=== PATIENT | male | born 1945 | race Caucasian/White ===

== ENCOUNTER 2024-05-13 23:14 | Inpatient (IN) | payer MEDICARE, OTHER, SELFPAY ==
[2024-05-13] VITALS (7 sets, daily range): BP systolic 106–121; BP diastolic 31–75; BMI 23.9
--- NOTE | 2024-05-13 18:49 | ED.GENMED ---
History of Present Illness
<Rafi lEy MD - Last Filed: 05/13/24 18:52>
General
Chief Complaint: Breathing Problem
Time Seen by Provider: 05/13/24 18:40
History of Present Illness
History of Present Illness:
Patient presents to the emergency department in respiratory distress. His helps provide history. Notes that he is otherwise very healthy and usually walks the golf course multiple times a week. Over the past 2 weeks he has become
increasingly short of breath with productive cough, myalgias, fatigue. Notes that symptoms started 2 weeks ago. 1 week ago he saw his doctor and was started on Ceftin and albuterol. He has continued to decline and today began feeling very short
of breath. Denies chest pain. Denies leg swelling. Denies vomiting or diarrhea. Has a history of tobacco use but states he quit 45 years ago denies any prior lung disease
Phy Exam
<Rafi Ely MD - Last Filed: 05/13/24 18:52>
Physical Exam
Physical Exam:
GENERAL APPEARANCE: Patient pale appearing, in moderate respiratory distress,
EYES lids/conjunctiva normal
EARS/NOSE/THROAT Mucous membranes moist, uvula midline without oral pharyngeal erythema, exudate or swelling
HEAD/NECK normocephalic atraumatic, neck is supple.
RESPIRATORY speaking in short sentences, diffuse wheezing and rhonchi
CARDIAC tachycardic
ABDOMINAL Soft, ND/NT.
MUSCLES/EXTREMITIES No abnormal range of motion, no swelling.
SKIN Warm, dry. No rashes
NEUROLOGICAL Speech is clear and appropriate. Normal level of consciousness. 5/5 strength in all extremities.
Course
<Rafi Ely MD - Last Filed: 05/13/24 18:52>
Orders/Labs/Results
Orders:
Orders
05/13/24 18:44
Electrocardiogram (*1) Urgent
Reason for Study: Shortness of Breath
05/13/24 18:45
EKG- Treatment ONCE
05/13/24 18:46
Albuterol Nebs [Ventolin Nebules] 2.5 mg INH R NOW STA
Ipratropium/Albuterol Sulfate [Duoneb] 3 ml INH R NOW STA
MethylPREDNISolone PF [Solu-Medrol Pf] 125 mg IV NOW STA
O2 Therapy [RESP] Stat
Nasal Cannula Liter Flow: 5 LPM
Titrate/Wean O2 to maintain O2 sat greater than (%): 92
Pulse Ox/cont/shift [RESP] Stat
Quantity: 1
05/13/24 18:48
CT Chest Pe Study Urgent
Comment:
Reason For Exam: hypoxia
Peak Flow Rate [RESP] Urgent
Quantity: 1
Pre-Bronchodilator: Yes
Post Bronchodilator: Yes
Special Instructions: Pre and Post Peak Flow before and after Bronchodilator
05/13/24 19:16
COVID-19 Antigen Urgent
Source: Nasal Swab
Complete Blood Count/With Diff Urgent
Comprehensive Metabolic Panel Urgent
D-Dimer Urgent
Lactic Acid Q4H
Comment: CANCEL 2nd LACTIC ACID IF 1st LACTIC ACID IS LESS THAN 2
NT-proBNP Urgent
Troponin I Urgent
Influenza A+B Rapid Molecular Urgent
JAJA Source: Nasal Swab
Specimen Description:
05/13/24 19:49
Blood Culture Urgent
JAJA Source: Blood/Venous
Specimen Description:
05/13/24 19:55
O2 Therapy [RESP] Urgent
Titrate/Wean O2 to maintain O2 sat greater than (%): 91
05/13/24 20:11
Azithromycin 500 mg/250 ml [Zithromax Infusion] 500 mg in 250 ml IV NOW
CefTRIAXone [Rocephin] 1,000 mg IV NOW STA
05/13/24 20:31
CR Chest Portable - 1 View Urgent
Comment:
Reason For Exam: sob
Reason Study Needs to be Portable: Other
05/13/24 22:42
Admit/Transfer Patient As Directed
Co-Sign Provider:
Level of Care: Inpatient admission
Assign to:: IMU- Intermediate Care
Physician / Group: dylon
Diagnosis: pneumonia
Reason for Hospitalization: pneumonia
Expected length of stay greater than two midnights?: Yes
ELOS- Estimated Length of Stay in days: 2
I certify the patient meets the requirements for IP care: Yes
Code Status As Directed
Resuscitation Status: Full Code
05/13/24 22:54
MRSA Screen Routine
JAJA Source: Nose
Specimen Description:
05/13/24 23:00
Flush (0.9% Sodium Chloride) [Flush (Nss)] See Dose Instructions IV PER PROTOCOL
05/13/24 23:17
Legionella Urinary Antigen Urgent
JAJA Source: Urine
Specimen Description:
Strep pneumoniae Antigen Urgent
JAJA Source: Urine
Specimen Description:
05/14/24 00:09
0.9% Sodium Chloride 1000 ml [Nss] 1,000 ml IV 100 mls/hr
Albuterol [ProAIR HFA INHALER] 2 puff INH R QIDPRN PRN
Piperacillin/Tazo 3.375 Gram [Zosyn] 3.375 gram in 50 ml IV Q6H
05/14/24 00:09
Activity As Directed
Activity Level: As Tolerated
Vital Signs As Directed
Frequency: Per unit guidelines
DX Deep Vein Thrombosis Video Routine
05/14/24 03:37
Complete Blood Count/With Diff IN AM
Comprehensive Metabolic Panel IN AM
05/14/24 08:00
Cholecalciferol (Vitamin D3) [VITAMIN D3 (cholecalciferol)] 50 mcg PO DAILY
Heparin 5,000 units SC Q12
05/14/24 Dinner
NPO
Allow oral meds: Yes
Allow clear liquids: Sips of Clears
05/14/24 20:00
Azithromycin 500 mg/250 ml [Zithromax Infusion] 500 mg in 250 ml IV Q24H
Abnormal Lab Results
05/13/24
19:16
WBC 30.1 H 10^3/uL
(4.8-10.8)
Abs Immat Gran (auto) 0.6 H 10^3/uL
(0-0.05)
Absolute Neuts (auto) 27.3 H 10^3/uL
(1.4-6.5)
Absolute Lymphs (auto) 0.4 L 10^3/uL
(1.2-3.4)
Absolute Monos (auto) 1.7 H 10^3/uL
(0.1-0.6)
Immature Gran % 2.0 H %
(0-0.5)
Neutrophils % 90.7 H %
(42.2-75.2)
Lymphocytes % 1.3 L %
(20.5-51.1)
D-Dimer 1.30 H ug/mlFEU
(0.00-0.50)
BUN 33 H mg/dl
(9-20)
Glucose 121 H mg/dl
(70-99)
AST 60 H U/L
(17-59)
ALT 60 H U/L
(0-50)
Total Protein 6.0 L g/dl
(6.3-8.2)
05/13/24 19:16
05/13/24 19:16
Vital Signs
Initial and Last Documented VS:
Initial Vital Signs
Temp Pulse Resp BP Pulse Ox
37.3 C 122 22 115/75 86
05/13/24 18:32 05/13/24 18:32 05/13/24 18:32 05/13/24 18:32 05/13/24 18:32
Last Documented Vital Signs
Temp Pulse Resp BP Pulse Ox
36.4 C 48 16 100/59 95
05/14/24 03:00 05/14/24 03:45 05/14/24 03:45 05/14/24 02:00 05/14/24 03:45
<Xavier Wei MD - Last Filed: 05/14/24 05:20>
Orders/Labs/Results
Orders:
Orders
05/13/24 18:44
Electrocardiogram (*1) Urgent
Reason for Study: Shortness of Breath
05/13/24 18:45
EKG- Treatment ONCE
05/13/24 18:46
Albuterol Nebs [Ventolin Nebules] 2.5 mg INH R NOW STA
Ipratropium/Albuterol Sulfate [Duoneb] 3 ml INH R NOW STA
MethylPREDNISolone PF [Solu-Medrol Pf] 125 mg IV NOW STA
O2 Therapy [RESP] Stat
Nasal Cannula Liter Flow: 5 LPM
Titrate/Wean O2 to maintain O2 sat greater than (%): 92
Pulse Ox/cont/shift [RESP] Stat
Quantity: 1
05/13/24 18:48
CT Chest Pe Study Urgent
Comment:
Reason For Exam: hypoxia
Peak Flow Rate [RESP] Urgent
Quantity: 1
Pre-Bronchodilator: Yes
Post Bronchodilator: Yes
Special Instructions: Pre and Post Peak Flow before and after Bronchodilator
05/13/24 19:16
COVID-19 Antigen Urgent
Source: Nasal Swab
Complete Blood Count/With Diff Urgent
Comprehensive Metabolic Panel Urgent
D-Dimer Urgent
Lactic Acid Q4H
Comment: CANCEL 2nd LACTIC ACID IF 1st LACTIC ACID IS LESS THAN 2
NT-proBNP Urgent
Troponin I Urgent
Influenza A+B Rapid Molecular Urgent
JAJA Source: Nasal Swab
Specimen Description:
05/13/24 19:49
Blood Culture Urgent
JAJA Source: Blood/Venous
Specimen Description:
05/13/24 19:55
O2 Therapy [RESP] Urgent
Titrate/Wean O2 to maintain O2 sat greater than (%): 91
05/13/24 20:11
Azithromycin 500 mg/250 ml [Zithromax Infusion] 500 mg in 250 ml IV NOW
CefTRIAXone [Rocephin] 1,000 mg IV NOW STA
05/13/24 20:31
CR Chest Portable - 1 View Urgent
Comment:
Reason For Exam: sob
Reason Study Needs to be Portable: Other
05/13/24 22:42
Admit/Transfer Patient As Directed
Co-Sign Provider:
Level of Care: Inpatient admission
Assign to:: IMU- Intermediate Care
Physician / Group: dylon
Diagnosis: pneumonia
Reason for Hospitalization: pneumonia
Expected length of stay greater than two midnights?: Yes
ELOS- Estimated Length of Stay in days: 2
I certify the patient meets the requirements for IP care: Yes
Code Status As Directed
Resuscitation Status: Full Code
05/13/24 22:54
MRSA Screen Routine
JAJA Source: Nose
Specimen Description:
05/13/24 23:00
Flush (0.9% Sodium Chloride) [Flush (Nss)] See Dose Instructions IV PER PROTOCOL
05/13/24 23:17
Legionella Urinary Antigen Urgent
JAJA Source: Urine
Specimen Description:
Strep pneumoniae Antigen Urgent
JAJA Source: Urine
Specimen Description:
05/14/24 00:09
0.9% Sodium Chloride 1000 ml [Nss] 1,000 ml IV 100 mls/hr
Albuterol [ProAIR HFA INHALER] 2 puff INH R QIDPRN PRN
Piperacillin/Tazo 3.375 Gram [Zosyn] 3.375 gram in 50 ml IV Q6H
05/14/24 00:09
Activity As Directed
Activity Level: As Tolerated
Vital Signs As Directed
Frequency: Per unit guidelines
DX Deep Vein Thrombosis Video Routine
05/14/24 03:37
Complete Blood Count/With Diff IN AM
Comprehensive Metabolic Panel IN AM
05/14/24 08:00
Cholecalciferol (Vitamin D3) [VITAMIN D3 (cholecalciferol)] 50 mcg PO DAILY
Heparin 5,000 units SC Q12
05/14/24 Dinner
NPO
Allow oral meds: Yes
Allow clear liquids: Sips of Clears
05/14/24 20:00
Azithromycin 500 mg/250 ml [Zithromax Infusion] 500 mg in 250 ml IV Q24H
Abnormal Lab Results
05/13/24
19:16
WBC 30.1 H 10^3/uL
(4.8-10.8)
Abs Immat Gran (auto) 0.6 H 10^3/uL
(0-0.05)
Absolute Neuts (auto) 27.3 H 10^3/uL
(1.4-6.5)
Absolute Lymphs (auto) 0.4 L 10^3/uL
(1.2-3.4)
Absolute Monos (auto) 1.7 H 10^3/uL
(0.1-0.6)
Immature Gran % 2.0 H %
(0-0.5)
Neutrophils % 90.7 H %
(42.2-75.2)
Lymphocytes % 1.3 L %
(20.5-51.1)
D-Dimer 1.30 H ug/mlFEU
(0.00-0.50)
BUN 33 H mg/dl
(9-20)
Glucose 121 H mg/dl
(70-99)
AST 60 H U/L
(17-59)
ALT 60 H U/L
(0-50)
Total Protein 6.0 L g/dl
(6.3-8.2)
05/13/24 19:16
05/13/24 19:16
Vital Signs
Initial and Last Documented VS:
Initial Vital Signs
Temp Pulse Resp BP Pulse Ox
37.3 C 122 22 115/75 86
05/13/24 18:32 05/13/24 18:32 05/13/24 18:32 05/13/24 18:32 05/13/24 18:32
Last Documented Vital Signs
Temp Pulse Resp BP Pulse Ox
36.4 C 48 16 100/59 95
05/14/24 03:00 05/14/24 03:45 05/14/24 03:45 05/14/24 02:00 05/14/24 03:45
<Xavier Wei MD - Last Filed: 05/14/24 05:20>
Update Note
Update Note:
UPDATE (Xavier Wei MD)
I saw and examined the patient after signout and reviewed all labs and imaging.
Focused HPI: This is a 78-year-old male with a past medical history as documented who presented to the emergency room with worsening shortness of breath. Patient has had symptoms for about 2 weeks�primary symptom being cough, shortness of breath,
body aches and fatigue. He saw his primary doctor last week and was prescribed Ceftin for possible pneumonia versus bronchitis. He has been taking this but symptoms worsening despite these measures and so he ultimately came to the emergency room
for assessment.
Physical exam: Awake and alert with good mental status. Tachycardic and tachypneic, hypoxic requiring high flow nasal cannula to maintain saturations. Work of breathing is acceptable.
Medical Decision Makin-year-old male presents with 2-week history of worsening dyspnea, cough, chills despite treatment with outpatient antibiotics. Vitals and exam as above. Clinical picture seems most consistent with acute respiratory
failure secondary to pneumonia. He had lab work sent off including a CBC which showed a leukocytosis to 31. Predominant neutrophils on differential. His CMP showed mild hyperglycemia but otherwise unremarkable. He had an undetectable troponin
and only a slightly elevated proBNP�his clinical picture does not seem consistent with CHF. He had a COVID and flu swab which were both negative. He had a D-dimer that was positive. He is pending CTA to evaluate for pneumonia as well as to rule
out PE. Plan for admission pending CT. He has been covered with antibiotics for community-acquired pneumonia in the ER.
CT chest shows no PE but severe bilateral pneumonia. Updated patient�on reassessment oxygenation has been acceptable on high flow, vital signs have greatly improved. Will plan for admission at this point�case discussed with hospitalist for
admission.
ED Attending Note
<Rafi Ely MD - Last Filed: 05/13/24 18:52>
-
Portions of this chart may have been created with voice recognition software.� Occasional wrong word or��sound alike� substitutions may have occurred due to the inherent limitations of voice recognition software.
Discharge Plan
Departure
Patient Disposition: Admit
Date of Disposition: 05/13/24
Time of Disposition: 22:04
Admit to doctor: John
Presentation/result/management discussed w/ accepting MD/DO: Hospitalist
Discharge Problem:
Pneumonia, Acute hypoxemic respiratory failure
Interventions
Interventions:
*Risk Screen - Suicide Last Done: 05/13/24 18:32
*General Assessment Last Done: 05/13/24 18:32
*Neglect/Abuse Screening Last Done: 05/13/24 18:32
ED- Fall Risk Assessment Last Done: 05/14/24 00:11
*ED COVID-19 Vaccine History Last Done: 05/14/24 00:00
*Nursing Disposition Last Done: 05/14/24 00:11
ED- Cardiac Assessment Last Done: 05/13/24 19:20
ED- Pulmonary Assessment Last Done: 05/13/24 19:20
Discharge Date and Time
Discharge Date/Time: 05/14/24 00:12
[2024-05-13] MEDS: DUONEB 3 ML INH (19:01)
[2024-05-13] MEDS: VENTOLIN NEBULES 2.5 MG INH (19:01)
[2024-05-13] MEDS: SOLU-MEDROL PF 125 MG IV (19:23)
[2024-05-13 19:27] LABS: % Basophils 0.4 % (0-2); % Lymphocytes 1.3 % (20.5-51.1); % Monocytes 5.6 % (1.7-9.3); % Neutrophils 90.7 % (42.2-75.2); Absolute Basophils 0.1 10^3/uL (0-0.2); Absolute Immature Granulocytes 0.6 10^3/uL (0-0.05); Absolute Lymphocytes 0.4 10^3/uL (1.2-3.4); Absolute Monocytes 1.7 10^3/uL (0.1-0.6); Absolute Neutrophils 27.3 10^3/uL (1.4-6.5); Hematocrit 47.4 % (39.0-52.0); Hemoglobin 16.3 g/dL (13.0-18.0); Mean Corp Hgb Conc. 34.4 g/dL (33.0-37.0); Mean Corpuscular Hgb 29.1 pg (27.0-31.0); Mean Corpuscular Volume 84.5 fL (80.0-94.0); Mean Platelet Volume 10.2 fL (7.4-10.4); Nucleated Red Blood Cells % 0 % (-); Platelet Count 249 10^3/uL (130-400); Red Blood Cell Count 5.61 10^6/uL (4.70-6.10); Red Cell Dist. Width 13.8 % (11.5-14.5); White Blood Cell Count 30.1 10^3/uL (4.8-10.8)
[2024-05-13 19:38] LABS: Lactic Acid 1.3 mmol/L (0.7-2.0)
[2024-05-13 19:41] LABS: ALT (SGPT) 60 U/L (0-50); AST (SGOT) 60 U/L (17-59); Albumin 3.5 g/dl (3.5-5.0); Alkaline Phosphatase 112 U/L (38-126); Blood Urea Nitrogen 33 mg/dl (9-20); Calcium 9.2 mg/dl (8.4-10.2); Carbon Dioxide 26 mmol/L (22-30); Chloride 105 mmol/L (98-107); Glucose 121 mg/dl (70-99); Potassium 4.4 mmol/L (3.5-5.1); Sodium 139 mmol/L (135-145); Total Bilirubin 0.9 mg/dl (0.2-1.3); eGFR > 60.00
[2024-05-13 19:51] LABS: NT-proBNP 741 pg/ml; Troponin I < 0.012 ng/ml
[2024-05-13 20:08] LABS: COVID-19 Antigen Negative (Negative)
[2024-05-13] MEDS: ROCEPHIN 1000 MG IV (20:26)
[2024-05-13] MEDS: ZITHROMAX INFUSION 250 IV (20:26)
--- NOTE | 2024-05-13 22:46 | HPS.HSE ---
Family Physician
-
Family Physician: Urszula Roy
Chief Complaint
-
cough, shortness of breath
History of Present Illness
78-year-old male past medical history of achalasia status post myotomy, non-Hodgkin's lymphoma of abdomen status post chemotherapy 6 years ago, presenting with shortness of breath and productive cough for the past week. Patient is normally quite
healthy and usually walks on the golf course multiple times per week. Over the past week she has become increasingly short of breath with productive cough, body aches and fatigue. 1 week he saw his doctor and was started on Ceftin and steroid but
symptoms have been getting worse over the past few days. He denies any chest pain. He denies any lower extreme edema. He denies any vomiting or diarrhea. He denies any fevers or chills.
He is not on any active treatment for the achalasia and cannot tolerate most foods although sometimes it takes him some time to swallow the food. He denies coughing after eating or aspiration.
He does have a history of tobacco use but he quit 45 years ago.
Medical History
Past Medical History
Past Medical History: Reports Other (achalasia status post myotomy, non-Hodgkin's lymphoma of abdomen status post chemotherapy 6 years ago)
Past Surgical History: Reports Other (myomectomy, bunion surgery )
Social History
Tobacco: Former Smoker
Alcohol: Daily (1 glass of wine )
Family History
Family History: Not pertinent
Allergies / Home Medications
Allergies reflects when Allergies were last updated in [employer].
Home Medications with original date entered in [employer]
Allergy/Medication List:
Allergies
Allergy/AdvReac Type Severity Reaction Status Date / Time
No Known Allergies Allergy Unverified 05/13/24 18:29
Home Medications
albuterol sulfate 90 mcg/actuation aerosol inhaler 2 puff inhalation R QIDPRN PRN sob 05/13/24
cefuroxime axetil 250 mg tablet 250 mg PO BID 05/13/24
cholecalciferol (vitamin D3) 50 mcg (2,000 unit) capsule (Vitamin D3) 50 mcg PO DAILY 05/13/24
Review of Systems
-
History Source: Patient
A 12 point ROS was completed and negative except as noted: Yes
Constitutional: Reports No Symptoms
EENT: Reports No Symptoms
Respiratory: Reports See HPI
Cardiac: Reports No Symptoms
Abdomen/GI: Reports No Symptoms
: Reports No Symptoms
Musculoskeletal: Reports No Symptoms
Skin: Reports No Symptoms
Neurological: Reports No Symptoms
Endocrine: Reports No Symptoms
Hematologic/Lymphatic: Reports No Symptoms
Psych: Reports No Symptoms
Physical Exam
Vital Signs
Vital Signs
Temp Pulse Resp BP Pulse Ox
97.8 F 83 23 107/66 94
05/13/24 21:55 05/13/24 22:15 05/13/24 22:15 05/13/24 22:00 05/13/24 22:15
Physical Exam
General: Well Developed, Well Nourished and No Apparent Distress
HEENT: NormoCephalic, Moist mucous membranes and Atraumatic
Respiratory: Rales
Cardiac: S1/S2 and Regular Rhythm; No Murmur or Rub
GI: Soft, Non Tender, Non Distended and Normal Bowel Sounds; No Organomegaly
Rectal: Deferred by Provider
Musculoskeletal: No Clubbing, No Cyanosis and No Edema
Skin: No Rash
Neuro: Nonfocal/grossly intact
Laboratory Results
-
05/13/24 19:16
05/13/24 19:16
Laboratory Results
Lactic Acid Cancelled 05/13/24 23:00
Total Bilirubin 0.9 mg/dl (0.2-1.3) 05/13/24 19:16
AST 60 U/L (17-59) H 05/13/24 19:16
ALT 60 U/L (0-50) H 05/13/24 19:16
Alkaline Phosphatase 112 U/L (38-126) 05/13/24 19:16
Troponin I < 0.012 ng/ml 05/13/24 19:16
Data Reviewed
-
Lab Data: Labs Reviewed by me
Old Records: Reviewed
Impression/Plan
-
IMPRESSION:
PLAN:
# Acute hypoxemic respiratory failure secondary to severe bilateral lower lobe/right middle lobe pneumonia/left upper lobe
-CT chest shows severe bilateral lower lobes, right middle lobe pneumonia, pneumonia in the left upper lobe, very severe diffuse esophageal distention consistent with very severe achalasia, mild mediastinal and bilateral hilar lymphadenopathy, mild
cardiomegaly,
-History of achalasia can predispose to aspiration pneumonia however distribution of pneumonia not clearly consistent with aspiration
-Influenza and COVID-negative
-Check sputum culture, strep antigen, Legionella antigen
-Check MRSA
-Blood culture pending
-IV fluids
-Zosyn/azithromycin
-Currently on high flow oxygen
# Transaminitis unclear etiology
-Continue to monitor
History of severe achalasia
-N.p.o. for now
History of non-Hodgkin's lymphoma status postchemotherapy 6 years ago
Full code
DVT prophylaxis�heparin
N.p.o.
[2024-05-14] VITALS (14 sets, daily range): BP systolic 88–123; BP diastolic 48–83; BMI 23.1
[2024-05-14] MEDS: ZOSYN 50 IV ×5 (00:44→23:56)
[2024-05-14] MEDS: NSS 1000 IV ×3 (00:44→20:44)
--- NOTE | 2024-05-14 00:57 | PTCARENOTE ---
Received patient from the ED on 12 liters midflow satting at 92 percent. IVF/IV ABX initiated.
[2024-05-14 03:45] LABS: % Basophils 0.3 % (0-2); % Monocytes 1.3 % (1.7-9.3); % Neutrophils 96.4 % (42.2-75.2); Absolute Basophils 0.1 10^3/uL (0-0.2); Absolute Immature Granulocytes 0.3 10^3/uL (0-0.05); Absolute Lymphocytes 0.3 10^3/uL (1.2-3.4); Absolute Monocytes 0.4 10^3/uL (0.1-0.6); Hematocrit 47.6 % (39.0-52.0); Hemoglobin 15.4 g/dL (13.0-18.0); Mean Corp Hgb Conc. 32.4 g/dL (33.0-37.0); Mean Corpuscular Hgb 28.6 pg (27.0-31.0); Mean Corpuscular Volume 88.5 fL (80.0-94.0); Mean Platelet Volume 10.3 fL (7.4-10.4); Nucleated Red Blood Cells % 0 % (-); Platelet Count 195 10^3/uL (130-400); Red Blood Cell Count 5.38 10^6/uL (4.70-6.10); Red Cell Dist. Width 13.6 % (11.5-14.5); White Blood Cell Count 31.1 10^3/uL (4.8-10.8)
[2024-05-14 04:10] LABS: ALT (SGPT) 48 U/L (0-50); AST (SGOT) 48 U/L (17-59); Alkaline Phosphatase 89 U/L (38-126); Blood Urea Nitrogen 32 mg/dl (9-20); Calcium 8.6 mg/dl (8.4-10.2); Carbon Dioxide 25 mmol/L (22-30); Chloride 107 mmol/L (98-107); Estimated Creatinine Clearance 59 ml/min; Glucose 169 mg/dl (70-99); Potassium 4.7 mmol/L (3.5-5.1); Sodium 139 mmol/L (135-145); Total Protein 5.4 g/dl (6.3-8.2); eGFR > 60.00
[2024-05-14] MEDS: HEPARIN 5000 UNITS SC ×2 (09:02→20:44)
[2024-05-14] MEDS: VITAMIN D3 (cholecalciferol) PO (09:03)
--- NOTE | 2024-05-14 09:45 | PTCARENOTE ---
Received on 15L midflow this am- now sao2 90%, pt states that he is actually feeling alot better. D/w provider- if sao2 drops below 90% consider high flow o2. Coughing up green yellow sputum now. Tolerating sips of clears. Family at bedside.
[2024-05-14] MEDS: VITAMIN D3 (cholecalciferol) 50 MCG PO (11:40)
--- NOTE | 2024-05-14 12:42 | W.PN.HOSP.TC ---
Today's Communication/Plan
-
IVF
restart soft bite
speech
IV abx
wean o2 as tolerated
Assessment / Plan
Assessment / Plan
# Acute hypoxemic respiratory failure secondary to severe bilateral lower lobe/right middle lobe pneumonia/left upper lobe
# Sepsis secondary to pneumonia-poa
-CT chest shows severe bilateral lower lobes, right middle lobe pneumonia, pneumonia in the left upper lobe, very severe diffuse esophageal distention consistent with very severe achalasia, mild mediastinal and bilateral hilar lymphadenopathy, mild
cardiomegaly,
-Influenza and COVID-negative
-Check sputum culture, strep antigen, Legionella antigen-NEGative
-Check MRSA pending
-Blood culture pending
-IV fluids
-Zosyn/azithromycin
-Currently on midflow with o2 sats 90-96%. If with hypoxemia with O2 sats persistently dropping less than 90 then transition to high flow nasal cannula.
-Incentive spirometry and Acapella
-Sputum sample if able to give sample
# Transaminitis unclear etiology
-Resolved.
History of severe achalasia
-Tolerates diet at home without much difficult. Unable to eat steak at times does okay otherwise with soft food consistency diet
-Follows at [facility] and was recently seen and plan was to continue with current management without any intervention.
History of non-Hodgkin's lymphoma status postchemotherapy 6 years ago
-Follows at [facility]
Full code
DVT prophylaxis�heparin
Discussed with spouse at bedside in detail
Anticipated Discharge: > 48 hours
Subjective/Interval History
-
Date of Service: May 14, 2024
On midflow
States feeling better compared to yesterday
Able to speak in complete sentences
not tachypneic
Objective Data
-
Labs:
Laboratory Results
05/14/24
03:37
WBC 31.1 H
Hgb 15.4
Hct 47.6
Plt Count 195 D
Sodium 139
Potassium 4.7
Chloride 107
Carbon Dioxide 25
BUN 32 H
Creatinine 1.1
Glucose 169 H
Calcium 8.6
Total Bilirubin 1.0
AST 48
ALT 48
Alkaline Phosphatase 89
Vital Signs:
Vital Signs
Temp Pulse Resp BP Pulse Ox
97.7 F 53 21 103/60 93
05/14/24 11:39 05/14/24 09:06 05/14/24 09:06 05/14/24 09:06 05/14/24 09:06
I&O
05/13/24 05/14/24 05/15/24
06:59 06:59 06:59
Intake Total 700 / 700
Output Total 300 / 300 200 / 200
Balance 400 / 400 -200 / -200
Physical Exam
-
General: Well Developed and No Apparent Distress; Negative Respiratory Distress
HEENT: Normocephalic, Atraumatic, Moist Mucous Membranes and Oxygen (midflow )
Respiratory: Decreased Breath Sounds
Cardiac: Regular Rhythm and S1/S2; Negative Murmur, Rub or Gallop
GI: Soft, Nontender, Nondistended and Normal Bowel Sounds; Negative Organomegaly
Rectal: Deferred by Provider
Musculoskeletal: No Clubbing, No Cyanosis and No Edema
Skin: Negative Rash
Neuro: Awake, AO x 3, No Motor Deficits and Nonfocal/Grossly Intact
Psych: Calm
Data Reviewed
-
Total Time Spent with Patient (in minutes): 56
--- NOTE | 2024-05-14 14:50 | PTOTSP ---
Speech Language Pathology
Pt seen for clinical bedside swallow evaluation. Pt with known esophageal achalasia since he was in his 20s. He reported that he does not eat steak, but can eat everything else. He recently saw GI at [facility] with no plans for any intervention at
this time, as he is managing well.
P.O. trials of puree, regular solids, and thin liquids provided. Upright posture noted with pt taking breaks as needed when globus sensation noted in esophagus. Adequate mastication, bolus formation, and A-P transit noted with no oral residue.
Occasional throat clear post P.O., which pt/ report is typical. No change in vocal quality or overt coughing. Pt currently ordered IDDSI Level 6 solids. He is fine staying on this diet for now.
Recommend:
(1) Continue IDDSI Level 6 (Soft/Bite-Sized) and Thin liquids per pt preference this date
(2) Can advance to regular solids/thin liquids as requested
(3) Esophageal precautions
(4) Meds as tolerated
(5) QI SPECIALIST to sign off. Please reconsult as indicated
--- NOTE | 2024-05-14 17:42 | PTCARENOTE ---
OOB this afternoon. Weaned O2 to 12L Midflow. sao2 91-94%. Freq. MPC- specimen sent to lab. IS / Acupella in use. IVF/ IV antibx as ordered. UO low adequate- monitor. Overall feeling better than yesterday.
[2024-05-14] MEDS: ZITHROMAX INFUSION 250 IV (20:44)
[2024-05-15] VITALS (12 sets, daily range): BP systolic 92–125; BP diastolic 46–79
[2024-05-15] MEDS: TUMS 1 TABLET PO (00:12)
[2024-05-15 04:39] LABS: % Basophils 0.3 % (0-2); % Eosinophils 0.1 % (0-6); % Immature Granulocytes 1.5 % (0-0.5); % Lymphocytes 1.8 % (20.5-51.1); % Monocytes 3.1 % (1.7-9.3); % Neutrophils 93.2 % (42.2-75.2); Absolute Basophils 0.1 10^3/uL (0-0.2); Absolute Immature Granulocytes 0.5 10^3/uL (0-0.05); Absolute Lymphocytes 0.6 10^3/uL (1.2-3.4); Absolute Neutrophils 29.3 10^3/uL (1.4-6.5); Hematocrit 46.7 % (39.0-52.0); Hemoglobin 15.6 g/dL (13.0-18.0); Mean Corp Hgb Conc. 33.4 g/dL (33.0-37.0); Mean Corpuscular Hgb 28.9 pg (27.0-31.0); Mean Corpuscular Volume 86.5 fL (80.0-94.0); Nucleated Red Blood Cells % 0 % (-); Platelet Count 220 10^3/uL (130-400); Red Cell Dist. Width 13.8 % (11.5-14.5); White Blood Cell Count 31.5 10^3/uL (4.8-10.8)
[2024-05-15 05:17] LABS: Blood Urea Nitrogen 35 mg/dl (9-20); Calcium 8.7 mg/dl (8.4-10.2); Carbon Dioxide 26 mmol/L (22-30); Chloride 109 mmol/L (98-107); Estimated Creatinine Clearance 65 ml/min; Glucose 86 mg/dl (70-99); Potassium 4.5 mmol/L (3.5-5.1); Sodium 143 mmol/L (135-145); eGFR > 60.00
--- NOTE | 2024-05-15 05:38 | PTCARENOTE ---
No acute events overnight. Remained on 12 liters midflow. Afebrile. Frequent productive cough.
[2024-05-15] MEDS: ZOSYN 50 IV ×3 (05:51→17:53)
[2024-05-15] MEDS: D5LR 1000 IV (09:28)
[2024-05-15] MEDS: HEPARIN 5000 UNITS SC ×2 (09:28→19:46)
[2024-05-15] MEDS: VITAMIN D3 (cholecalciferol) 50 MCG PO (09:28)
--- NOTE | 2024-05-15 12:42 | W.PN.HOSP.TC ---
Today's Communication/Plan
-
start duoneb
Restart IVF
IV antibiotics
wean o2 as tolerated
encouarge po intake
Assessment / Plan
Assessment / Plan
General: Well Developed and No Apparent Distress; Negative Respiratory Distress
HEENT: Normocephalic, Atraumatic, Moist Mucous Membranes and Oxygen (midflow 10)
Respiratory: rhonchi
Cardiac: Regular Rhythm and S1/S2; Negative Murmur, Rub or Gallop
GI: Soft, Nontender, Nondistended and Normal Bowel Sounds; Negative Organomegaly
Rectal: Deferred by Provider
Musculoskeletal: No Clubbing, No Cyanosis and No Edema
Skin: Negative Rash
Neuro: Awake, AO x 3, No Motor Deficits and Nonfocal/Grossly Intact
Psych: Calm, pleasant
# Acute hypoxemic respiratory failure secondary to severe bilateral lower lobe/right middle lobe pneumonia/left upper lobe
# Sepsis secondary to pneumonia-poa
-CT chest shows severe bilateral lower lobes, right middle lobe pneumonia, pneumonia in the left upper lobe, very severe diffuse esophageal distention consistent with very severe achalasia, mild mediastinal and bilateral hilar lymphadenopathy, mild
cardiomegaly,
-Influenza and COVID-negative
-Check sputum culture-usual resp courtney
-strep antigen, Legionella antigen-NEGative
-Check MRSA negative
-Blood culture negative so far
-IV fluids restarted
-Zosyn/azithromycin
-Currently on midflow with o2 sats 90-96%. If with hypoxemia with O2 sats persistently dropping less than 90 then transition to high flow nasal cannula.
-Incentive spirometry and Acapella and will start Duoneb to assess if any improvement
# Transaminitis unclear etiology
-Resolved.
History of severe achalasia
-Tolerates diet at home without much difficult. Unable to eat steak at times does okay otherwise with soft food consistency diet
-Follows at [facility] and was recently seen and plan was to continue with current management without any intervention.
History of non-Hodgkin's lymphoma status postchemotherapy 6 years ago
-Follows at [facility]
-Persistent leukocytosis ?component of NHL-No prior labs to compare.
#Hx of tobacco abuse for 18 years
-used to smoke heavy in the past ~18pack years
Full code
DVT prophylaxis�heparin
Discussed with spouse at bedside in detail on 05/14
Anticipated Discharge: > 48 hours
Subjective/Interval History
-
Date of Service: May 15, 2024
States feeling better
on 10L Midflow
Objective Data
-
Labs:
Laboratory Results
05/15/24
04:31
WBC 31.5 H
Hgb 15.6
Hct 46.7
Plt Count 220
Sodium 143
Potassium 4.5
Chloride 109 H
Carbon Dioxide 26
BUN 35 H
Creatinine 1.0
Glucose 86
Calcium 8.7
Vital Signs:
Vital Signs
Temp Pulse Resp BP Pulse Ox
97.7 F 56 17 125/57 90
05/15/24 11:10 05/15/24 08:00 05/15/24 08:00 05/15/24 08:00 05/15/24 08:00
I&O
05/14/24 05/15/24 05/16/24
06:59 06:59 06:59
Intake Total 700 / 700 3850 / 3850 480 / 480
Output Total 300 / 300 750 / 750
Balance 400 / 400 3100 / 3100 480 / 480
Data Reviewed
-
Total Time Spent with Patient (in minutes): 56
[2024-05-15] MEDS: DUONEB 3 ML INH ×3 (13:09→19:53)
--- NOTE | 2024-05-15 18:45 | PTCARENOTE ---
Patient out of bed to chair for most of the day. IV fluids and antibiotics infusing as ordered. Patient on 10L 02 via midflow, spo2 91-95%. Lungs diminished and coarse with some scattered rhonci. Patient bringing up green/yellow sputum. Patient
denies any pain or discomfort.
[2024-05-15] MEDS: ZITHROMAX INFUSION 250 IV (19:46)
--- NOTE | 2024-05-15 20:20 | PTCARENOTE ---
Received pt from kendall BROOKS. Pt is AAOx3, TLINGIT & HAIDA wears hearing aides. NSR w/ PVCs on the monitor. On 9L midflow O2 sat 91%, lungs coarse/diminished/rhonchi, productive cough. Pt uses the urinal. D5LR infusing @ 70ml/hr. Pt OOB in the chair, assisted
x1 back to bed. Pt is laying comfortable in bed with call mcduffie in reach.
[2024-05-16] VITALS (7 sets, daily range): BP systolic 104–118; BP diastolic 51–68
[2024-05-16] MEDS: D5LR 1000 IV (00:30)
[2024-05-16] MEDS: ZOSYN 50 IV ×5 (00:32→23:22)
[2024-05-16 05:19] LABS: % Basophils 0.3 % (0-2); % Eosinophils 0.1 % (0-6); % Lymphocytes 1.8 % (20.5-51.1); % Monocytes 3.8 % (1.7-9.3); Absolute Basophils 0.1 10^3/uL (0-0.2); Absolute Immature Granulocytes 0.2 10^3/uL (0-0.05); Absolute Lymphocytes 0.4 10^3/uL (1.2-3.4); Absolute Monocytes 0.9 10^3/uL (0.1-0.6); Absolute Neutrophils 21.6 10^3/uL (1.4-6.5); Hematocrit 43.3 % (39.0-52.0); Hemoglobin 13.9 g/dL (13.0-18.0); Mean Corp Hgb Conc. 32.1 g/dL (33.0-37.0); Mean Corpuscular Hgb 27.9 pg (27.0-31.0); Mean Corpuscular Volume 86.9 fL (80.0-94.0); Mean Platelet Volume 10.4 fL (7.4-10.4); Nucleated Red Blood Cells % 0 % (-); Platelet Count 197 10^3/uL (130-400); Red Blood Cell Count 4.98 10^6/uL (4.70-6.10); Red Cell Dist. Width 13.6 % (11.5-14.5); White Blood Cell Count 23.2 10^3/uL (4.8-10.8)
[2024-05-16 05:37] LABS: Blood Urea Nitrogen 25 mg/dl (9-20); Calcium 8.4 mg/dl (8.4-10.2); Carbon Dioxide 22 mmol/L (22-30); Chloride 111 mmol/L (98-107); Estimated Creatinine Clearance 72 ml/min; Glucose 99 mg/dl (70-99); Potassium 4.4 mmol/L (3.5-5.1); Sodium 139 mmol/L (135-145); eGFR > 60.00
[2024-05-16] MEDS: HEPARIN 5000 UNITS SC ×2 (07:42→20:12)
[2024-05-16] MEDS: VITAMIN D3 (cholecalciferol) 50 MCG PO (07:42)
[2024-05-16] MEDS: DUONEB 3 ML INH ×4 (08:06→19:36)
--- NOTE | 2024-05-16 10:43 | W.PN.HOSP.TC ---
Today's Communication/Plan
-
If O2 remained stable transfer to telemetry
Advance diet
Stop fluid
Continue with IV antibiotics
Assessment / Plan
Assessment / Plan
General: Well Developed and No Apparent Distress; Negative Respiratory Distress
HEENT: Normocephalic, Atraumatic, Moist Mucous Membranes and Oxygen (midflow 8 liters)
Respiratory: rhonchi improved
Cardiac: Regular Rhythm and S1/S2; Negative Murmur, Rub or Gallop
GI: Soft, Nontender, Nondistended and Normal Bowel Sounds; Negative Organomegaly
Rectal: Deferred by Provider
Musculoskeletal: No Clubbing, No Cyanosis and No Edema
Skin: Negative Rash
Neuro: Awake, AO x 3, No Motor Deficits and Nonfocal/Grossly Intact
Psych: Calm, pleasant
# Acute hypoxemic respiratory failure secondary to severe bilateral lower lobe/right middle lobe pneumonia/left upper lobe
# Sepsis secondary to pneumonia-poa
-CT chest shows severe bilateral lower lobes, right middle lobe pneumonia, pneumonia in the left upper lobe, very severe diffuse esophageal distention consistent with very severe achalasia, mild mediastinal and bilateral hilar lymphadenopathy, mild
cardiomegaly,
-Influenza and COVID-negative
-Check sputum culture-usual resp courtney
-strep antigen, Legionella antigen-NEGative
-Check MRSA negative
-Blood culture negative so far. Sputum sample usual respiratory courtney.
-Discontinue further fluids
-Zosyn/azithromycin. WBC downtrending.
-Improvement in oxygenation and currently on 8 L mid flow
-Incentive spirometry and Acapella and will start Duoneb to assess if any improvement
# Transaminitis unclear etiology
-Resolved.
History of severe achalasia
-Tolerates diet at home without much difficult. Unable to eat steak at times does okay otherwise with soft food consistency diet
-Advance to regular diet
-Follows at [facility] and was recently seen and plan was to continue with current management without any intervention.
History of non-Hodgkin's lymphoma status postchemotherapy 6 years ago
-Follows at [facility]
-Persistent leukocytosis ?component of NHL-No prior labs to compare.
#Hx of tobacco abuse for 18 years
-used to smoke heavy in the past ~18pack years
Full code
DVT prophylaxis�heparin
Discussed with spouse at bedside in detail on 05/16
Anticipated Discharge: > 48 hours
Subjective/Interval History
-
Date of Service: May 16, 2024
States improvement in breathing
O2 sats downtrending
Tolerating diet and would like it to be upgraded
Objective Data
-
Labs:
Laboratory Results
05/16/24
04:51
WBC 23.2 H
Hgb 13.9
Hct 43.3
Plt Count 197
Sodium 139
Potassium 4.4
Chloride 111 H
Carbon Dioxide 22
BUN 25 H
Creatinine 0.9
Glucose 99
Calcium 8.4
Vital Signs:
Vital Signs
Temp Pulse Resp BP Pulse Ox
97.8 F 61 16 112/68 95
05/16/24 07:16 05/16/24 08:10 05/16/24 08:10 05/16/24 06:00 05/16/24 10:35
I&O
05/15/24 05/16/24 05/17/24
06:59 06:59 06:59
Intake Total 3850 / 3850 3725 / 3725
Output Total 750 / 750 445 / 445 150 / 150
Balance 3100 / 3100 3280 / 3280 -150 / -150
Data Reviewed
-
Total Time Spent with Patient (in minutes): 55
--- NOTE | 2024-05-16 12:42 | PTCARENOTE ---
ra infiltrate +1 edema. ra iv dc'd. arm elevated, ice applied. will cont to monitor
--- NOTE | 2024-05-16 13:25 | PTCARENOTE ---
Assumed care of Pt at shift change; Pt resting comfortably in bed on 9L O2 @ 92%; Able to wean O2 down throughout day to 5L @ 93%; Lungs coarse with scattered rhonchi; Very productive cough, with sputum now white in color. Diet advanced to
regular; Completed D5-LR, continues with IV ABX; Downgraded to TELE; Will continue to monitor and assess.
--- NOTE | 2024-05-16 14:45 | PTCARENOTE ---
Received report from Kole in IMU. Pt arrived to rm 406-2 at this time, AAAOx3, SR on telemetry, SPO2 94% on 5L of O2 via midflow, denies any SOB, no chest discomfort, see shift assessment for further detail. Oriented pt and his to , reporting
concerns, plan of care, ordering meals, pressure ulcer prevention, call mcduffie etc- both verbalized understanding, call mcduffie within reach.
[2024-05-16] MEDS: ZITHROMAX INFUSION 250 IV (20:13)
[2024-05-17] VITALS (11 sets, daily range): BP systolic 93–131; BP diastolic 57–81; O2SAT 91–93
[2024-05-17] MEDS: ZOSYN 50 IV ×4 (05:23→23:25)
[2024-05-17 07:18] LABS: % Basophils 0.3 % (0-2); % Eosinophils 0.5 % (0-6); % Immature Granulocytes 1.3 % (0-0.5); % Lymphocytes 2.1 % (20.5-51.1); % Neutrophils 90.8 % (42.2-75.2); Absolute Basophils 0.1 10^3/uL (0-0.2); Absolute Eosinophils 0.1 10^3/uL (0-0.7); Absolute Immature Granulocytes 0.2 10^3/uL (0-0.05); Absolute Lymphocytes 0.4 10^3/uL (1.2-3.4); Absolute Monocytes 0.9 10^3/uL (0.1-0.6); Absolute Neutrophils 15.9 10^3/uL (1.4-6.5); Hematocrit 40.7 % (39.0-52.0); Hemoglobin 13.6 g/dL (13.0-18.0); Mean Corp Hgb Conc. 33.4 g/dL (33.0-37.0); Mean Corpuscular Hgb 28.9 pg (27.0-31.0); Mean Corpuscular Volume 86.4 fL (80.0-94.0); Mean Platelet Volume 10.5 fL (7.4-10.4); Nucleated Red Blood Cells % 0 % (-); Platelet Count 241 10^3/uL (130-400); Red Blood Cell Count 4.71 10^6/uL (4.70-6.10); Red Cell Dist. Width 13.7 % (11.5-14.5); White Blood Cell Count 17.5 10^3/uL (4.8-10.8)
[2024-05-17 07:20] LABS: Blood Urea Nitrogen 18 mg/dl (9-20); Calcium 8.4 mg/dl (8.4-10.2); Carbon Dioxide 25 mmol/L (22-30); Chloride 108 mmol/L (98-107); Estimated Creatinine Clearance 72 ml/min; Glucose 84 mg/dl (70-99); Potassium 3.8 mmol/L (3.5-5.1); Sodium 141 mmol/L (135-145); eGFR > 60.00
[2024-05-17] MEDS: DUONEB 3 ML INH ×3 (07:45→15:27)
[2024-05-17] MEDS: VITAMIN D3 (cholecalciferol) 50 MCG PO (08:28)
[2024-05-17] MEDS: FLUSH (NSS) 1 FLUSH IV (08:28)
[2024-05-17] MEDS: HEPARIN 5000 UNITS SC ×2 (08:28→20:06)
--- NOTE | 2024-05-17 09:23 | VATNOTE ---
Right arm reported infiltrate improving, patient continues with cool compresses
--- NOTE | 2024-05-17 12:20 | W.PN.HOSP.TC ---
Today's Communication/Plan
-
wean o2 as tolerate
last dose of azithromycin tonight
cont zosyn
wbc downtrend
increase activity
Assessment / Plan
Assessment / Plan
General: Well Developed and No Apparent Distress; Negative Respiratory Distress
HEENT: Normocephalic, Atraumatic, Moist Mucous Membranes and Oxygen (midflow 4 liters)
Respiratory: rhonchi improved
Cardiac: Regular Rhythm and S1/S2; Negative Murmur, Rub or Gallop
GI: Soft, Nontender, Nondistended and Normal Bowel Sounds; Negative Organomegaly
Rectal: Deferred by Provider
Musculoskeletal: No Clubbing, No Cyanosis and No Edema
Skin: Negative Rash
Neuro: Awake, AO x 3, No Motor Deficits and Nonfocal/Grossly Intact
Psych: Calm, pleasant
# Acute hypoxemic respiratory failure secondary to severe bilateral lower lobe/right middle lobe pneumonia/left upper lobe
# Sepsis secondary to pneumonia-poa
-CT chest shows severe bilateral lower lobes, right middle lobe pneumonia, pneumonia in the left upper lobe, very severe diffuse esophageal distention consistent with very severe achalasia, mild mediastinal and bilateral hilar lymphadenopathy, mild
cardiomegaly,
-Influenza and COVID-negative
-Check sputum culture-usual resp courtney
-strep antigen, Legionella antigen-NEGative
-Check MRSA negative
-Blood culture negative so far. Sputum sample usual respiratory courtney.
-Discontinue further fluids
-Zosyn/azithromycin. WBC downtrending.
-Improvement in oxygenation and currently on 4 L mid flow
-Incentive spirometry and Acapella and will start Duoneb to assess if any improvement
# Transaminitis unclear etiology
-Resolved.
History of severe achalasia
-Tolerates diet at home without much difficult. Unable to eat steak at times does okay otherwise with soft food consistency diet
-Advance to regular diet and tolerating it
-Follows at [facility] and was recently seen and plan was to continue with current management without any intervention.
History of non-Hodgkin's lymphoma status postchemotherapy 6 years ago
-Follows at [facility]
-Persistent leukocytosis ?component of NHL-No prior labs to compare.
#Hx of tobacco abuse for 18 years
-used to smoke heavy in the past ~18pack years
Full code
DVT prophylaxis�heparin sc
Discussed with spouse at bedside in detail on 05/16
Anticipated Discharge: > 48 hours
Subjective/Interval History
-
Date of Service: May 17, 2024
sitting in chair
feeling better
tolerating diet
remains on oxygen
Objective Data
-
Labs:
Laboratory Results
05/17/24
05:57
WBC 17.5 H
Hgb 13.6
Hct 40.7
Plt Count 241 D
Sodium 141
Potassium 3.8
Chloride 108 H
Carbon Dioxide 25
BUN 18
Creatinine 0.9
Glucose 84
Calcium 8.4
Vital Signs:
Vital Signs
Temp Pulse Resp BP Pulse Ox
97.6 F 76 18 93/64 95
05/17/24 11:36 05/17/24 11:36 05/17/24 11:36 05/17/24 11:36 05/17/24 11:38
I&O
05/16/24 05/17/24 05/18/24
06:59 06:59 06:59
Intake Total 3725 / 3725 1600 / 1600
Output Total 445 / 445 700 / 700
Balance 3280 / 3280 900 / 900
--- NOTE | 2024-05-17 13:13 | PTCARENOTE ---
Pt's BP at 1130 was 93/64, pt asymptomatic. Pt's at bedside and states that pt's BP is often low even at home. Repeat BP 121/74, will monitor.
--- NOTE | 2024-05-17 17:00 | PTCARENOTE ---
Addendum entered by Arpita Rodriguez 05/17/24 18:43:
Udpated Dr. Sandoval at 1800 that pt continues to be sustaining HR 120s-130s, up to 150 in bed, remains Afib, asymptomatic. BP 131/81. Dr. Sandoval will place order for PRN Lopressor. Updated pt and his .
Original Note:
Noted that pt's HR 130s-150s on telemetry, irregular at this time. Pt sitting in chair, asymptomatic. Encouraged pt to lay down and EKG obtained, HR continues to be sustaining 120s-130s, asymptomatic. BP 124/71, SpO2 93% on 4L O2 via mid flow at
that time. EKG showing Afib. Dr. Sandoval aware. wants pt to be continued to be monitored for 30 minutes and to provide update to him, will monitor closely.
[2024-05-17] MEDS: LOPRESSOR 5 MG IV (18:47)
[2024-05-17] MEDS: ZITHROMAX INFUSION 250 IV (20:06)
[2024-05-18 03:26] VITALS: BP 104/71
[2024-05-18] MEDS: ZOSYN 50 IV ×4 (05:08→23:09)
[2024-05-18 07:55] VITALS: BP 116/69
[2024-05-18 07:59] LABS: % Basophils 0.5 % (0-2); % Eosinophils 1.4 % (0-6); % Immature Granulocytes 1.4 % (0-0.5); % Lymphocytes 2.8 % (20.5-51.1); % Monocytes 5.9 % (1.7-9.3); Absolute Basophils 0.1 10^3/uL (0-0.2); Absolute Eosinophils 0.2 10^3/uL (0-0.7); Absolute Immature Granulocytes 0.2 10^3/uL (0-0.05); Absolute Lymphocytes 0.4 10^3/uL (1.2-3.4); Absolute Monocytes 0.9 10^3/uL (0.1-0.6); Absolute Neutrophils 13.4 10^3/uL (1.4-6.5); Hematocrit 44.1 % (39.0-52.0); Hemoglobin 14.5 g/dL (13.0-18.0); Mean Corp Hgb Conc. 32.9 g/dL (33.0-37.0); Mean Corpuscular Hgb 28.8 pg (27.0-31.0); Mean Corpuscular Volume 87.7 fL (80.0-94.0); Mean Platelet Volume 10.3 fL (7.4-10.4); Nucleated Red Blood Cells % 0 % (-); Platelet Count 270 10^3/uL (130-400); Red Blood Cell Count 5.03 10^6/uL (4.70-6.10); Red Cell Dist. Width 13.9 % (11.5-14.5); White Blood Cell Count 15.3 10^3/uL (4.8-10.8)
[2024-05-18 08:20] LABS: Blood Urea Nitrogen 19 mg/dl (9-20); Calcium 8.5 mg/dl (8.4-10.2); Carbon Dioxide 29 mmol/L (22-30); Chloride 106 mmol/L (98-107); Estimated Creatinine Clearance 65 ml/min; Glucose 79 mg/dl (70-99); Potassium 4.2 mmol/L (3.5-5.1); Sodium 141 mmol/L (135-145); eGFR > 60.00
--- NOTE | 2024-05-18 08:51 | VATNOTE ---
During routine assessment of site of infiltrate on pt's R arm, pt states it is not painful. Moderate swelling noted. Ice applied and arm elevated.
[2024-05-18] MEDS: VITAMIN D3 (cholecalciferol) 50 MCG PO (09:30)
[2024-05-18] MEDS: HEPARIN 5000 UNITS SC (09:30)
--- NOTE | 2024-05-18 10:38 | W.PN.HOSP.TC ---
Today's Communication/Plan
-
Wean oxygen as tolerated
Monitor heart rate
Cardiology for input
Assessment / Plan
Assessment / Plan
General: Well Developed and No Apparent Distress; Negative Respiratory Distress
HEENT: Normocephalic, Atraumatic, Moist Mucous Membranes and Oxygen (midflow 4 liters)
Respiratory: rhonchi improved
Cardiac: Regular Rhythm and S1/S2; Negative Murmur, Rub or Gallop
GI: Soft, Nontender, Nondistended and Normal Bowel Sounds; Negative Organomegaly
Rectal: Deferred by Provider
Musculoskeletal: No Clubbing, No Cyanosis and No Edema
Skin: Negative Rash
Neuro: Awake, AO x 3, No Motor Deficits and Nonfocal/Grossly Intact
Psych: Calm, pleasant
# Acute hypoxemic respiratory failure secondary to severe bilateral lower lobe/right middle lobe pneumonia/left upper lobe
# Sepsis secondary to pneumonia-poa
-CT chest shows severe bilateral lower lobes, right middle lobe pneumonia, pneumonia in the left upper lobe, very severe diffuse esophageal distention consistent with very severe achalasia, mild mediastinal and bilateral hilar lymphadenopathy, mild
cardiomegaly,
-Influenza and COVID-negative
-Check sputum culture-usual resp courtney
-strep antigen, Legionella antigen-NEGative
-Check MRSA negative
-Blood culture negative so far. Sputum sample usual respiratory courtney.
-Discontinue further fluids
-Completed azithromycin course. Continue Zosyn. WBC downtrending.
-Improvement in oxygenation and currently on 4 L mid flow
-Incentive spirometry and Acapella and will start Duoneb to assess if any improvement
# Tachycardia likely secondary to A. tach versus A-fib
-Telemetry strips reviewed. Tachycardia as high as 150s and strips certain with regular rhythm and few of them with irregularly irregular noted status post 5 mg of Lopressor
-Currently in normal sinus earlier today with heart rate in mid 70s
-Will ask cards for input
# Transaminitis unclear etiology
-Resolved.
History of severe achalasia
-Tolerates diet at home without much difficult. Unable to eat steak at times does okay otherwise with soft food consistency diet
-Advance to regular diet and tolerating it
-Follows at [facility] [place] and was recently seen and plan was to continue with current management without any intervention.
History of non-Hodgkin's lymphoma status postchemotherapy 6 years ago
-Follows at [facility]
-Persistent leukocytosis ?component of NHL-No prior labs to compare.
#Hx of tobacco abuse for 18 years
-used to smoke heavy in the past ~18pack years
Full code
DVT prophylaxis�heparin sc
Discussed with spouse at bedside in detail
Anticipated Discharge: 24 - 48 hours
Subjective/Interval History
-
Date of Service: May 18, 2024
History of an episode of severe tachycardia
Was asymptomatic
No chest pain
No prior history of severe tachycardia
Objective Data
-
Labs:
Laboratory Results
05/18/24
07:08
WBC 15.3 H
Hgb 14.5
Hct 44.1
Plt Count 270
Sodium 141
Potassium 4.2
Chloride 106
Carbon Dioxide 29
BUN 19
Creatinine 1.0
Glucose 79
Calcium 8.5
Vital Signs:
Vital Signs
Temp Pulse Resp BP Pulse Ox
97.6 F 70 20 116/69 95
05/18/24 07:55 05/18/24 07:55 05/18/24 07:55 05/18/24 07:55 05/18/24 07:55
I&O
05/17/24 05/18/24 05/19/24
06:59 06:59 06:59
Intake Total 1600 / 1600 1050 / 1050
Output Total 700 / 700 500 / 500
Balance 900 / 900 550 / 550
--- NOTE | 2024-05-18 10:55 | CON.CAR ---
Addendum entered and electronically signed by María Severino MD 05/18/24 14:19:
I saw and examined the patient.
The ADULT BASIC EDUCATION TEACHER's note was reviewed and I agree with the note.
Comment: 78 yo with NHL, achalasia here with multilobar pna found to have elevated heart rates. He had no sense of it. He is feeling much better now than admission. On exam he has bibasilar rales, rrr no m/r/g. ECG shows atach vs aflutter at
accelerated rates but tele review shows afib now NSR. We discussed the risk benefits of anticoagulation given atrial fibrillation. He is agreeable. Additionally we will start at low-dose beta-apurva for rate control should this rhythm can recur.
Will check an echocardiogram. Otherwise care of pneumonia as per medicine.
Original Note:
Consultation
Consultation Request
Date/Time Consultation Requested: 05/18/2024 10:30
Date/Time Consultation Performed: 05/18/2027 11:00
Requesting Provider: Dr. Sandoval
Performing Provider: ERIK Issa for Dr. Severino
Reason for Consultation: Atrial fibrillation with rapid ventricular response, tachycardia
Medical History
-
Chief Complaint: Shortness of breath, cough
History of Present Illness:
Azam Mac is a 78-year-old male with non-Hodgkin's lymphoma (follicular type), severe achalasia, and former smoker who presented to the emergency department 05/13/2024 with a chief complaint of shortness of breath. He endorses associated
productive cough. This was worsening over 1 week. He then began experiencing fatigue along with bodyaches. He was diagnosed with severe bilateral pneumonia. When he is in his usual state of health he walks the golf course multiple times per week
and has no symptoms of shortness of breath or chest pain. He has developed atrial fibrillation with rapid ventricular response for which cardiology has been consulted. He was asymptomatic while in RVR.
He has never seen a res counselor.
Past Medical History
Past Medical History: Cancer (NHL [follicular]) and Other (Severe achalasia)
Past Surgical History: Other (Heller esophagectomy)
Social History
Tobacco: Former Smoker
Alcohol: None (None for the last 3 months, usually has 1 glass of wine with dinner.)
Drug: None
Personal:
Living: With Family
Employment: Retired
Family History
Family History: Reviewed & Not Pertinent (Denies early CAD and SCD.)
Allergies / Home Medications
Allergy/AdvReac Type Severity Reaction Status Date / Time
No Known Allergies Allergy Unverified 05/13/24 18:29
�Medication �Instructions �Recorded �Confirmed �Type
albuterol sulfate 90 mcg/actuation 2 puff inhalation R QIDPRN PRN sob 05/13/24 05/13/24 History
aerosol inhaler
cefuroxime axetil 250 mg tablet 250 mg PO BID Infection 05/13/24 05/13/24 History
cholecalciferol (vitamin D3) 50 50 mcg PO DAILY Supplement 05/13/24 05/13/24 History
mcg (2,000 unit) capsule (Vitamin
D3)
Review of Systems
-
History Source: Patient
All other systems: Negative unless noted
Constitutional: Fatigue
EENT: No Symptoms
Respiratory: Cough and Trouble Breathing
Cardiac: No Symptoms
Abdomen/GI: No Symptoms
: No Symptoms
Musculoskeletal: No Symptoms
Skin: No Symptoms
Neurological: No Symptoms
Endocrine: No Symptoms
Hematologic/Lymphatic: No Symptoms
Physical Exam
Vital Signs
Temp Pulse Resp BP Pulse Ox
97.6 F 70 20 116/69 95
05/18/24 07:55 05/18/24 07:55 05/18/24 07:55 05/18/24 07:55 05/18/24 07:55
Lab Results
05/18/24 07:08
05/18/24 07:08
Troponin I < 0.012 ng/ml 05/13/24 19:16
Crz-[id number]-Pnpftlpzxcb Pept 741 pg/ml 05/13/24 19:16
Physical Exam
General: Well Developed, Well Nourished, No Apparent Distress and Comfortable
HEENT: Normocephalic, Anicteric and Moist Mucous Membranes
Respiratory: Crackles and Accessory Resp Muscle Use
Cardiac: S1/S2 and Regular Rhythm; Negative Peripheral Edema
Breast: Deferred by me
GI: Soft, Non Tender, Non Distended and Normal Bowel Sounds
Rectal: Deferred by Provider
Genito-urinary: No Costovertebral Tender
Musculoskeletal: No Clubbing, No Cyanosis and No Edema
Skin: Warm and Dry
Neuro: AO x 3
Psych: Calm
Impression / Plan
-
Atrial fibrillation with RVR
-Now back in sinus rhythm, update EKG
-He was asymptomatic with RVR
-Oral Anticoagulation: None prior to arrival, we reviewed the risks and benefits of oral anticoagulation, never had abnormal bleeding, he is agreeable to apixaban 5 mg twice daily
-[id number]: score at least 2 (age 75 or more), but may be higher with his non-Hodgkin's lymphoma
-Echocardiogram
Acute hypoxic respiratory failure, in the setting of pneumonia
-Initially required 15 L/min, now down to 4 L/min
Sepsis, in the setting of PNA, on antibiotics, per primary
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
Former tobacco use, continue full cessation
DATA:
Stress Echocardiogram, 03/02/2016:
11 minutes and 20 seconds stopping due to SVT
1mm upsloping ST depressions inferolaterally resolving within one minute
Appropriate LV systolic function
Data Reviewed
-
EKG: Report Reviewed by me (Sinus tachycardia, LVH, rate 110; atrial fibrillation with rapid ventricular response, rate 121)
Radiology: Report Reviewed by me (CXR: SEVERE BILATERAL LOWER LOBE and RIGHT MIDDLE LOBE PNEUMONIA. Mild left upper lobe pneumonia. VERY SEVERE DIFFUSE ESOPHAGEAL DISTENTION consistent with VERY SEVERE ACHALASIA.)
CT Scan: Report Reviewed by me (Chest: SEVERE BILATERAL LOWER LOBE and RIGHT MIDDLE LOBE PNEUMONIA. Mild pneumonia in the left upper lobe. VERY SEVERE DIFFUSE ESOPHAGEAL DISTENTION consistent with VERY SEVERE ACHALASIA. Mild mediastinal and
bilateral hilar lymphadenopathy. )
Labs: Labs Reviewed by me
Old Records: Reviewed
[2024-05-18 11:21] VITALS: BP 96/58
[2024-05-18 15:17] VITALS: BP 120/68
[2024-05-18 19:30] VITALS: BP 105/57
[2024-05-18] MEDS: ELIQUIS 5 MG PO (20:04)
[2024-05-18] MEDS: LOPRESSOR 12.5 MG PO (20:04)
[2024-05-18] MEDS: TUMS 2 TABLET PO (23:03)
[2024-05-18 23:10] VITALS: BP 121/65
[2024-05-19] VITALS (9 sets, daily range): BP systolic 95–124; BP diastolic 56–79; O2SAT 94–95
[2024-05-19] MEDS: ZOSYN 50 IV ×3 (05:00→17:40)
[2024-05-19 07:10] LABS: % Basophils 0.5 % (0-2); % Immature Granulocytes 1.2 % (0-0.5); % Lymphocytes 3.5 % (20.5-51.1); % Neutrophils 87.8 % (42.2-75.2); Absolute Basophils 0.1 10^3/uL (0-0.2); Absolute Eosinophils 0.3 10^3/uL (0-0.7); Absolute Immature Granulocytes 0.2 10^3/uL (0-0.05); Absolute Lymphocytes 0.5 10^3/uL (1.2-3.4); Absolute Monocytes 0.7 10^3/uL (0.1-0.6); Absolute Neutrophils 12.9 10^3/uL (1.4-6.5); Mean Corp Hgb Conc. 32.7 g/dL (33.0-37.0); Mean Corpuscular Hgb 29.2 pg (27.0-31.0); Mean Corpuscular Volume 89.4 fL (80.0-94.0); Mean Platelet Volume 9.9 fL (7.4-10.4); Nucleated Red Blood Cells % 0 % (-); Platelet Count 281 10^3/uL (130-400); Red Blood Cell Count 5.48 10^6/uL (4.70-6.10); Red Cell Dist. Width 13.9 % (11.5-14.5); White Blood Cell Count 14.7 10^3/uL (4.8-10.8)
[2024-05-19] MEDS: VITAMIN D3 (cholecalciferol) 50 MCG PO (08:11)
[2024-05-19] MEDS: LOPRESSOR 12.5 MG PO ×2 (08:11→20:07)
[2024-05-19] MEDS: ELIQUIS 5 MG PO ×2 (08:11→20:08)
--- NOTE | 2024-05-19 08:33 | VATNOTE ---
Reported right arm infiltrate resolved, so swelling or pain noted.
--- NOTE | 2024-05-19 09:19 | W.PN.CD ---
Today's Communication / Plan
-
conitnue current bb dose
continue eliquis 5mg bid
We will arrange f/u for op testing and visit
no further cardiac recommendation, I will see again at your request.
Impression / Plan
-
Atrial fibrillation with RVR
-Now back in sinus rhythm, BB started
-He was asymptomatic with RVR
-[id number]: score at least 2 (age 75 or more), but may be higher with his non-Hodgkin's lymphoma
-Oral Anticoagulation: apixaban 5 mg twice daily
Acute hypoxic respiratory failure, in the setting of pneumonia
-Initially required 15 L/min, now down to 4 L/min
Sepsis, in the setting of PNA, on antibiotics, per primary
RV dilation: , no PE, may be due to hypoxia, would reassess in 4-6 weeks for improvement.
-will get outpatient stress testing upon recovery of PNA.
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
Former tobacco use, continue full cessation
Subjective:
he is feeling a bit 'fuzzy', but no cp or palpitations.
DATA:
TTE 05/18/24 CONCLUSIONS
Normal left ventricular size, wall thickness and systolic function.
LV ejection fraction is 55-60% by Pickard's method of discs.
Enlarged right ventricular size with normal systolic function.
Mild to moderate aortic regurgitation.
No prior study available for comparison.
Stress Echocardiogram, 03/02/2016:
11 minutes and 20 seconds stopping due to SVT
1mm upsloping ST depressions inferolaterally resolving within one minute
Appropriate LV systolic function
Physical Exam
Vital Signs/Labs
Vital Signs
Temp Pulse Resp BP Pulse Ox
97.4 F 70 14 124/67 91
05/19/24 07:00 07/09/24 08:11 05/19/24 07:00 05/19/24 07:00 05/19/24 08:00
05/19/24 06:40
05/18/24 07:08
05/13/24
19:16
Gzy-Y-Bukkpmgaziu Pept 741
Physical Exam
Constitutional: No acute distress
Cardiovascular: Rhythm & rate is regular, JVD pressure is normal, Pedal edema present (trace edema at the ankles) and S1S2 is normal
Respiratory: Respiratory effort normal, Lungs clear to auscul., Wheeze Absent, Crackles Absent and Rhonchi Absent
Neuro/Psych: AO x 3
Data Reviewed
-
Date of Service: May 19, 2024
Medical Decision Making: Review of Case with other Provider (Dr Sandoval will continue current medications and sign off)
--- NOTE | 2024-05-19 11:10 | W.PN.HOSP.TC ---
Today's Communication/Plan
-
repeat cxr
duoneb
pulm input
monitor hr
wean o2
Assessment / Plan
Assessment / Plan
General: Well Developed and No Apparent Distress; Negative Respiratory Distress
HEENT: Normocephalic, Atraumatic, Moist Mucous Membranes and Oxygen (midflow 4 liters)
Respiratory: rhonchi improved
Cardiac: Regular Rhythm and S1/S2; Negative Murmur, Rub or Gallop
GI: Soft, Nontender, Nondistended and Normal Bowel Sounds; Negative Organomegaly
Rectal: Deferred by Provider
Musculoskeletal: No Clubbing, No Cyanosis and No Edema
Skin: Negative Rash
Neuro: Awake, AO x 3, No Motor Deficits and Nonfocal/Grossly Intact
Psych: Calm, pleasant
# Acute hypoxemic respiratory failure secondary to severe bilateral lower lobe/right middle lobe pneumonia/left upper lobe
# Sepsis secondary to pneumonia-poa
-CT chest shows severe bilateral lower lobes, right middle lobe pneumonia, pneumonia in the left upper lobe, very severe diffuse esophageal distention consistent with very severe achalasia, mild mediastinal and bilateral hilar lymphadenopathy, mild
cardiomegaly,
-Influenza and COVID-negative
-Check sputum culture-usual resp courtney
-strep antigen, Legionella antigen-NEGative
-Check MRSA negative
-Blood culture negative so far. Sputum sample usual respiratory courtney.
-Discontinue further fluids
-Completed azithromycin course. Continue Zosyn. WBC downtrending.
-Worsening oxygenation. Repeat 2view CXR.
-Incentive spirometry and Acapella. Start duoneb.
-With worsening oxygenation will ask pulmonary for further input
# Tachycardia likely secondary to A. tach versus A-fib
-Telemetry strips reviewed. Tachycardia as high as 150s and strips certain with regular rhythm and few of them with irregularly irregular noted status post 5 mg of Lopressor
-Currently in normal sinus earlier today with heart rate in mid 70s
-started on lopressor low dose and eliquis
-ECHO with normal ventricular size, thickness and systolic function. EF of 55 to 60%. Enlarged right ventricular size with normal systolic function. Mild to moderate aortic regurgitation.
# Transaminitis unclear etiology
-Resolved.
History of severe achalasia
-Tolerates diet at home without much difficult. Unable to eat steak at times does okay otherwise with soft food consistency diet
-Advance to regular diet and tolerating it
-Follows at [facility] and was recently seen and plan was to continue with current management without any intervention.
History of non-Hodgkin's lymphoma status postchemotherapy 6 years ago
-Follows at [facility]
-Persistent leukocytosis ?component of NHL-No prior labs to compare.
#Hx of tobacco abuse for 18 years
-used to smoke heavy in the past ~18pack years
Full code
DVT prophylaxis�eliquis
Discussed with spouse at bedside in detail
Anticipated Discharge: > 48 hours
Subjective/Interval History
-
Date of Service: May 19, 2024
O2 requirement went up compared to yesterday
feeling tired alot today
Objective Data
-
Labs:
Laboratory Results
05/19/24
06:40
WBC 14.7 H
Hgb 16.0
Hct 49.0
Plt Count 281
Vital Signs:
Vital Signs
Temp Pulse Resp BP Pulse Ox
97.4 F 70 14 124/67 91
05/19/24 07:00 05/19/24 08:11 05/19/24 07:00 05/19/24 07:00 05/19/24 08:00
I&O
05/18/24 05/19/24 05/20/24
06:59 06:59 06:59
Intake Total 1050 / 1050 1280 / 1280
Output Total 500 / 500 500 / 500
Balance 550 / 550 780 / 780
Data Reviewed
-
Total Time Spent with Patient (in minutes): 55
--- NOTE | 2024-05-19 11:28 | CON.PUL ---
Consultation
Consultation Request
Date/Time Consultation Requested: 05/19/2024 - 1113
Date/Time Consultation Performed: 05/19/2024 - 1121
Requesting Provider: Dr. Sandoval
Performing Provider: Dr. Rich
Reason for Consultation: PNA/Hypoxia
Medical History
-
Chief Complaint: SOB
History of Present Illness:
78-year-old male former tobacco smoker with a past medical history of esophageal achalasia s/p Heller myotomy, non-Hodgkin lymphoma s/p Rituxan, history of internal hemorrhoids and colonic polyps who presents with worsening SOB. He was treated for
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 Patient is normally a healthy male needing no assistance with ADLs and golfs
multiple times a week. Initial vitals in the ER showed he was afebrile to 99.2 �F, tachycardic to 122, tachypneic to 22, BP 115/75 and he was saturating 86% on room air which improved to 92-93% with 6 L/min nasal cannula. He initially had severe
leukocytosis with WBC of 30.1, D-dimer was 1.3, proBNP 741, negative troponin X1, and COVID antigen negative. Flu A/B were also negative, blood cultures were collected, and CXR showed bilateral lower lobe + RML pneumonia with severe diffuse
esophageal distention. CT chest done showing no evidence of any acute PE, with multifocal pneumonia in all lobes except RUL. Also with very severe diffuse esophageal distention and mild mediastinal/hilar lymphadenopathy. He was given nebulized
bronchodilators in the ER, Solu-Medrol 125 mg IV x 1, Zithromax and ceftriaxone and admitted to the hospitalist service. He was continued on antibiotics with Zosyn + Zithromax, and had initially required as much as 15 L/min via midflow nasal
cannula. Oxygen requirements has markedly improved however he still requires up to 4-5 L/min via midflow nasal cannula. Pulmonary service now consulted for additional management/recommendations.
When I saw the patient today he says he is feeling better. Patient's , Jennifer, at bedside. Patient currently on 4 L/min nasal cannula. He says his symptoms first began on 04/29 when he was having green/yellow nasal discharge and productive
cough with mild shortness of breath. 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 Went to PCP who recommended [id number] medications and no antibiotics
were given at that time. Symptoms progressed and then on 05/06 that is when he was given antibiotics with Ceftin and prednisone. Unfortunately his symptoms continued at that time and asked what led him to come here to the hospital. He is still
coughing up yellow/green phlegm but his breathing is better. He currently denies chest pain, headache, abdominal pain, nausea, fevers or chills.
PMHx: Esophageal achalasia s/p Heller myotomy, NHL s/p Rituxan, history of bunion s/p bunionectomy, history of internal hemorrhoids, history of colonic polyps
PSHx: Heller myotomy, bunionectomy, colonoscopy (2014)
Past Medical History
Past Medical History: Other (Above as per HPI)
Past Surgical History: Other (Above as per HPI)
Social History
Tobacco: Former Smoker (Quit smoking about 45 years ago)
Alcohol: Other (4-5 times a week)
Drug: None
Family History
Family History: Cancer (Mother: Colon cancer)
Allergies / Home Medications
Allergies
Allergy/AdvReac Type Severity Reaction Status Date / Time
No Known Allergies Allergy Unverified 05/13/24 18:29
Home Medications
�Medication �Instructions �Recorded �Confirmed �Last Taken �Type
albuterol sulfate 90 mcg/actuation 2 puff inhalation R QIDPRN PRN sob 05/13/24 05/13/24 Unknown History
aerosol inhaler
cefuroxime axetil 250 mg tablet 250 mg PO BID Infection 05/13/24 05/13/24 05/13/24 History
cholecalciferol (vitamin D3) 50 50 mcg PO DAILY Supplement 05/13/24 05/13/24 05/13/24 History
mcg (2,000 unit) capsule (Vitamin
D3)
Review of Systems
-
History Source: Patient
All other systems: Negative unless noted
Vitals / Labs / Diagnostic Testing
Vital Signs
Temp Pulse Resp BP Pulse Ox
98.5 F 67 18 110/58 94
05/19/24 11:00 05/19/24 11:00 05/19/24 11:00 05/19/24 11:00 05/19/24 11:00
Lab Data
05/19/24 06:40
05/18/24 07:08
Microbiology
05/13/24 19:49 Blood/Venous Blood Culture - Final
No Growth - Final Report
05/14/24 14:48 Sputum Respiratory Culture - Final
Usual Respiratory Emily
05/14/24 14:48 Sputum Gram Stain - Final
Diagnostic Testing:
Physical Exam
-
HEENT: Normocephalic and Anicteric
Cardiovascular: S1/S2, Peripheral Edema (Negative) and Other (Occasional pauses lasting <1 sec)
Respiratory: Wheeze (negative), Rales (Negative) and Rhonchi (Bases-middle lung don bilaterally)
GI: Soft, Non Distended, Non Tender and Normal Bowel Sounds
Neurology: Awake, Alert and Tremors (Negative)
Skin: Warm and Dry
General: Respiratory Distress (n), Comfortable, Chills (Negative) and Sweats (Negative)
Assessment
-
Assessment: 78-year-old male former tobacco smoker with a past medical history of esophageal achalasia s/p Heller myotomy, non-Hodgkin lymphoma s/p Rituxan, history of internal hemorrhoids and colonic polyps who presents with worsening SOB. He was
treated for bronchitis via his PCP [employer]ARDING ROOM [employer]ER with Ceftin + steroids, but his cough worsened and was productive with SOB and generalized weakness so he came to the ER for further evaluation. Patient is normally a healthy male needing no assistance with
ADLs and golfs multiple times a week. Initial vitals in the ER showed he was afebrile to 99.2 �F, tachycardic to 122, tachypneic to 22, BP 115/75 and he was saturating 86% on room air which improved to 92-93% with 6 L/min nasal cannula. He
initially had severe leukocytosis with WBC of 30.1, D-dimer was 1.3, proBNP 741, negative troponin X1, and COVID antigen negative. Flu A/B were also negative, blood cultures were collected, and CXR showed bilateral lower lobe + RML pneumonia with
severe diffuse esophageal distention. CT chest done showing no evidence of any acute PE, with multifocal pneumonia in all lobes except RUL. Also with very severe diffuse esophageal distention and mild mediastinal/hilar lymphadenopathy. He was
given nebulized bronchodilators in the ER, Solu-Medrol 125 mg IV x 1, Zithromax and ceftriaxone and admitted to the hospitalist service. He was continued on antibiotics with Zosyn + Zithromax, and had initially required as much as 15 L/min via
midflow nasal cannula. Oxygen requirements has markedly improved however he still requires up to 4-5 L/min via midflow nasal cannula. Pulmonary service now consulted for additional management/recommendations.
Chronic conditions [employer]ING ROOM [employer]: Esophageal achalasia s/p Heller myotomy, NHL s/p Rituxan, history of bunion s/p bunionectomy, history of internal hemorrhoids, history of colonic polyps
Impression:
#Sepsis due to multifocal pneumonia
#CAP
#Acute respiratory failure with hypoxia due to above
#Supplemental oxygen dependence
#Atrial tachycardia with new onset A-fib now in NSR
#RV enlargement with mild�moderate AI (seen on TTE from 05/18/2024)
#History of esophageal achalasia s/p Heller myotomy with very severe esophageal distention seen on CTA chest from 05/13/2024
Plan:
- Continue with broad-spectrum antibiotics � currently on Zithromax (started 05/13) + Zosyn (started 05/14)
- Will plan for at least 7-10 days of antibiotics assuming he continues to be afebrile and is clinically continuing to improve
- Follow-up blood culture (collected 05/13) + respiratory culture (collected 05/14)
- Maintain SpO2 >90-94% with supplemental O2; wean as tolerated with ambulatory pulse oximetry prior to discharge
- Incentive spirometer encouraged
- Continue prn nebulized bronchodilators
- Beta-apurva started by cardiology given his new onset atrial tachycardia/A-fib although now currently in NSR
- Echo from 05/18/2024 showed mild�moderate AI with RV enlargement with normal RV systolic function to no prior to compare to. Perhaps due to acute hypoxic respiratory failure; consider repeating TTE in 3 to 6 months
- Continue with Eliquis given elevated [id number] score; perhaps we can obtain outpatient Zio patch to assess A-fib burden if he ever wants to get himself off of Eliquis
- Replete electrolytes with K>4, Mg>2
- Maintain euglycemia with goal BG >100 and <180
- DVT ppx: NOAC
Pulmonary service will continue to follow along. He will need repeat imaging with CXR versus CT chest in about 4-6 weeks, and I will make arrangements to see him in the office as well for full PFTs + 6MWT (to try to get him off of oxygen as I
presume he will be discharged with home oxygen therapy).
Total time spent today was 55 minutes for this encounter. Time includes reviewing laboratory test/imaging results, reviewing pertinent medical records, obtaining and reviewing medical history, performing an appropriate exam, ordering medications,
tests and procedures. Time also includes documentation of this encounter, coordinating patient care and communicating with other healthcare professionals. Total time does not include separately billed tests performed on this date of service.
Data:
CTA Chest 05-13-2024:
1. SEVERE BILATERAL LOWER LOBE and RIGHT MIDDLE LOBE PNEUMONIA.
2. Mild pneumonia in the left upper lobe.
3. VERY SEVERE DIFFUSE ESOPHAGEAL DISTENTION consistent with VERY SEVERE ACHALASIA.
4. Mild mediastinal and bilateral hilar lymphadenopathy.
5. Mild cardiomegaly.
TTE 05-18-2024:
Normal left ventricular size, wall thickness and systolic function.
LV ejection fraction is 55-60% by Pickard's method of discs.
Enlarged right ventricular size with normal systolic function.
Mild to moderate aortic regurgitation.
No prior study available for comparison.
[2024-05-19] MEDS: DUONEB 3 ML INH ×3 (12:03→19:43)
--- NOTE | 2024-05-19 17:06 | CM ---
Alert awake oriented patient who lives with his Jennifer who lives in a 2 story home with 2 step to enter and 12 steps to bed and bathroom. He is independent in driving and in all activities of daily living.No adaptive devices. He was offered VN
he declined need.Eliquis melgar $243.00 Coupon given . aware. Pradaxa is $12.00 /mon.
No VN hx / No SNF history
Pharmacy [facility]
PCP DR Angelita Roy
PLAN Home Declined VN
Watch for oxygen needs
[2024-05-19] MEDS: LOPRESSOR 5 MG IV (20:38)
--- NOTE | 2024-05-19 21:30 | PTCARENOTE ---
Pt sitting up in chair watching TV developed sudden Afib w/ RVR. HRs sustaining in the 150s. T 97.3 RR 20 HR 151 BP 102/76 Pox 93% on 3L. Scheduled oral Metoprolol given approx 30 mins prior. PRN dose of IVP Lopressor 5 mg given. Pt's HRs currently
in the high 90s-low 100s - remains in Afib. Pt asymptomatic during entire event.
[2024-05-20] VITALS (7 sets, daily range): BP systolic 95–112; BP diastolic 56–70
[2024-05-20] MEDS: ZOSYN 50 IV ×4 (00:08→17:38)
--- NOTE | 2024-05-20 06:37 | PTCARENOTE ---
Pt w/ 3 boughts of diarrhea. CDiff specimen sent.
[2024-05-20] MEDS: DUONEB 3 ML INH ×4 (07:44→20:46)
[2024-05-20 07:51] LABS: % Basophils 0.6 % (0-2); % Immature Granulocytes 1.1 % (0-0.5); % Lymphocytes 2.9 % (20.5-51.1); % Neutrophils 88.4 % (42.2-75.2); Absolute Basophils 0.1 10^3/uL (0-0.2); Absolute Eosinophils 0.1 10^3/uL (0-0.7); Absolute Immature Granulocytes 0.2 10^3/uL (0-0.05); Absolute Lymphocytes 0.4 10^3/uL (1.2-3.4); Absolute Monocytes 0.9 10^3/uL (0.1-0.6); Absolute Neutrophils 12.7 10^3/uL (1.4-6.5); Hematocrit 44.3 % (39.0-52.0); Hemoglobin 14.7 g/dL (13.0-18.0); Mean Corp Hgb Conc. 33.2 g/dL (33.0-37.0); Mean Corpuscular Hgb 28.5 pg (27.0-31.0); Mean Platelet Volume 9.9 fL (7.4-10.4); Nucleated Red Blood Cells % 0 % (-); Platelet Count 302 10^3/uL (130-400); Red Blood Cell Count 5.15 10^6/uL (4.70-6.10); Red Cell Dist. Width 13.9 % (11.5-14.5); White Blood Cell Count 14.3 10^3/uL (4.8-10.8)
[2024-05-20 08:09] LABS: NT-proBNP 2820 pg/ml
[2024-05-20 08:49] LABS: Blood Urea Nitrogen 20 mg/dl (9-20); Calcium 8.9 mg/dl (8.4-10.2); Carbon Dioxide 24 mmol/L (22-30); Chloride 107 mmol/L (98-107); Estimated Creatinine Clearance 59 ml/min; Glucose 93 mg/dl (70-99); Magnesium 2.2 mg/dl (1.6-2.3); Potassium 3.7 mmol/L (3.5-5.1); Sodium 141 mmol/L (135-145); eGFR > 60.00
[2024-05-20] MEDS: LOPRESSOR 12.5 MG PO ×2 (08:52→22:09)
[2024-05-20] MEDS: ELIQUIS 5 MG PO (08:52)
[2024-05-20] MEDS: VITAMIN D3 (cholecalciferol) 50 MCG PO (08:52)
--- NOTE | 2024-05-20 10:12 | W.PN.PUL3 ---
Today's Communication / Plan
-
Trial of diuresis
ABx
Follow-up infectious workup
DuoNebs
Repeat imaging as an outpatient
O2 and titrate to keep SpO2 >90-94%; check home O2 assessment prior to discharge
Assessment
-
Assessment: 78-year-old male former tobacco smoker with a past medical history of esophageal achalasia s/p Heller myotomy, non-Hodgkin lymphoma s/p Rituxan, history of internal hemorrhoids and colonic polyps who presents with worsening SOB. He was
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 Patient is normally a healthy male needing no assistance with
ADLs and golfs multiple times a week. Initial vitals in the ER showed he was afebrile to 99.2 �F, tachycardic to 122, tachypneic to 22, BP 115/75 and he was saturating 86% on room air which improved to 92-93% with 6 L/min nasal cannula. He
initially had severe leukocytosis with WBC of 30.1, D-dimer was 1.3, proBNP 741, negative troponin X1, and COVID antigen negative. Flu A/B were also negative, blood cultures were collected, and CXR showed bilateral lower lobe + RML pneumonia with
severe diffuse esophageal distention. CT chest done showing no evidence of any acute PE, with multifocal pneumonia in all lobes except RUL. Also with very severe diffuse esophageal distention and mild mediastinal/hilar lymphadenopathy. He was
given nebulized bronchodilators in the ER, Solu-Medrol 125 mg IV x 1, Zithromax and ceftriaxone and admitted to the hospitalist service. He was continued on antibiotics with Zosyn + Zithromax, and had initially required as much as 15 L/min via
midflow nasal cannula. Oxygen requirements has markedly improved however he still requires up to 4-5 L/min via midflow nasal cannula. Pulmonary service now consulted for additional management/recommendations.
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
Impression:
#Sepsis due to multifocal pneumonia
#CAP
#Acute respiratory failure with hypoxia due to above
#Supplemental oxygen dependence
#Atrial tachycardia with new onset A-fib now in NSR
#RV enlargement with mild�moderate AI (seen on TTE from 05/18/2024)
#History of esophageal achalasia s/p Heller myotomy with very severe esophageal distention seen on CTA chest from 05/13/2024
Plan:
- Continue with broad-spectrum antibiotics � currently on Zosyn (started 05/14) s/p Zithromax (started 05/13-05/17/2024)
- Will plan for at least 7-10 days of antibiotics assuming he continues to be afebrile and is clinically continuing to improve
- Follow-up blood culture (collected 05/13) + respiratory culture (collected 05/14)
- Maintain SpO2 >90-94% with supplemental O2; wean as tolerated with ambulatory pulse oximetry prior to discharge
- Incentive spirometer encouraged
- Continue prn nebulized bronchodilators
- Trend WBC and fever curve
- ProBNP elevated at 2820 --> diurese as tolerated - will give 40mg IV lasix x1 and KCl 40 mEq x1; monitor UOP and evaluate his clinical response
- Beta-apurva started by cardiology given his new onset atrial tachycardia/A-fib although now currently in NSR
- Echo from 05/18/2024 showed mild�moderate AI with RV enlargement with normal RV systolic function to no prior to compare to. Perhaps due to acute hypoxic respiratory failure; consider repeating TTE in 3 to 6 months
- Continue with Eliquis given elevated [id number] score; perhaps we can obtain outpatient Zio patch to assess A-fib burden if he ever wants to get himself off of Eliquis
- Replete electrolytes with K>4, Mg>2
- Maintain euglycemia with goal BG >100 and <180
- DVT ppx: NOAC
Pulmonary service will continue to follow along. He will need repeat imaging with CXR versus CT chest in about 4-6 weeks, and I will make arrangements to see him in the office as well for full PFTs + 6MWT (to try to get him off of oxygen as I
presume he will be discharged with home oxygen therapy).
Total time spent today was 35 minutes for this encounter. Time includes reviewing laboratory test/imaging results, reviewing pertinent medical records, obtaining and reviewing medical history, performing an appropriate exam, ordering medications,
tests and procedures. Time also includes documentation of this encounter, coordinating patient care and communicating with other healthcare professionals. Total time does not include separately billed tests performed on this date of service.
Data:
CTA Chest 05-13-2024:
1. SEVERE BILATERAL LOWER LOBE and RIGHT MIDDLE LOBE PNEUMONIA.
2. Mild pneumonia in the left upper lobe.
3. VERY SEVERE DIFFUSE ESOPHAGEAL DISTENTION consistent with VERY SEVERE ACHALASIA.
4. Mild mediastinal and bilateral hilar lymphadenopathy.
5. Mild cardiomegaly.
TTE 05-18-2024:
Normal left ventricular size, wall thickness and systolic function.
LV ejection fraction is 55-60% by Pickard's method of discs.
Enlarged right ventricular size with normal systolic function.
Mild to moderate aortic regurgitation.
No prior study available for comparison.
Subjective Data
-
Date of Service:
Date of Service: May 20, 2024
Chief Complaint: Pulmonary Follow Up
Subjective:
Seen today at bedside, currently on 4 L/min nasal cannula. Occasional cough with white phlegm. at bedside. I answered all the patient and the 's questions to their satisfaction. The patient says he feels better today. Able to ambulate
and only needing 4 L/min and was reportedly only requiring 3 L/min earlier today.
Review of Systems
General: Other (Negative unless mentioned above)
Objective Data
Data Reviewed
Vital Signs / I&O / Oxygen:
Vital Signs
Temp Pulse Resp BP Pulse Ox
97.6 F 92 20 109/70 95
05/20/24 07:55 05/20/24 07:55 05/20/24 07:55 05/20/24 07:55 05/20/24 07:55
Intake and Output
05/19/24 05/20/24 05/21/24
06:59 06:59 06:59
Intake Total 1280 / 1280 1297 / 1297
Output Total 500 / 500 900 / 900
Balance 780 / 780 397 / 397
SaO2 95
Nasal Cannula flow liters per 3
minute
Physical Exam
General: Respiratory Distress (negative) and Comfortable
HEENT: Normocephalic
Cardiovascular: S1-S2 and Peripheral Edema (+1 lower extremity pitting edema bilaterally)
Respiratory: Crackles (Bibasilar), Rhonchi (Bilateral in the lower lobes-middle lung don) and Non-Labored Respirations
GI: Soft, Non Distended, Non Tender and Normal Bowel Sounds
Neurology: AO x 3 and Tremors (Negative)
Skin: Warm, Dry, Cyanosis (Negative) and Jaundice (Negative)
Labs/Micro/Reports
Lab Data
05/20/24 07:19
05/20/24 07:19
Microbiology
05/20/24 06:25 Feces/Stool C. difficile GDH Antigen & Toxins - Final
Negative for toxigenic C.difficile
05/13/24 19:49 Blood/Venous Blood Culture - Final
No Growth - Final Report
--- NOTE | 2024-05-20 13:22 | W.PN.HOSP.TC ---
Today's Communication/Plan
-
monitor vital signs and see plan
Wean oxygen as tolerated
Trial of Lasix if blood pressure allows and oxygenation does not improve
Continue abx
Assessment / Plan
Assessment / Plan
General: Well Developed and No Apparent Distress; Negative Respiratory Distress
HEENT: Normocephalic, Atraumatic, Moist Mucous Membranes and Oxygen (midflow 4 liters)
Respiratory: rhonchi improved
Cardiac: Regular Rhythm and S1/S2; Negative Murmur, Rub or Gallop
GI: Soft, Nontender, Nondistended and Normal Bowel Sounds; Negative Organomegaly
Rectal: Deferred by Provider
Musculoskeletal: No Clubbing, No Cyanosis and No Edema
Skin: Negative Rash
Neuro: Awake, AO x 3, No Motor Deficits and Nonfocal/Grossly Intact
Psych: Calm, pleasant
# Acute hypoxemic respiratory failure secondary to severe bilateral lower lobe/right middle lobe pneumonia/left upper lobe
# Sepsis secondary to pneumonia-poa
-CT chest shows severe bilateral lower lobes, right middle lobe pneumonia, pneumonia in the left upper lobe, very severe diffuse esophageal distention consistent with very severe achalasia, mild mediastinal and bilateral hilar lymphadenopathy, mild
cardiomegaly,
-Influenza and COVID-negative
At one point was on 15 L, now on 3 to 5 L
-Check sputum culture-usual resp courtney
-strep antigen, Legionella antigen-NEGative
-MRSA negative
-Blood culture negative so far. Sputum sample usual respiratory courtney.
-Discontinue further fluids
-Completed azithromycin course. Continue Zosyn. WBC downtrending.
-Repeat x-ray 05/20 with severe dilation of thoracic esophagus, similar to recent examination likely from achalasia. Opacity in the right lower lobe, left lower lung
-Incentive spirometry and Acapella. Start duoneb.
Pulmonary following
If symptoms and hypoxia do not improve then will give trial of Lasix if blood pressure stable
# Tachycardia likely secondary to A. tach versus A-fib
-Telemetry strips reviewed. Tachycardia as high as 150s and strips certain with regular rhythm and few of them with irregularly irregular noted status post 5 mg of Lopressor
-Seen by cardiology this hospitalization
-started on lopressor low dose and pradaxa
-ECHO with normal ventricular size, thickness and systolic function. EF of 55 to 60%. Enlarged right ventricular size with normal systolic function. Mild to moderate aortic regurgitation.
Diarrhea
C. difficile negative
Add probiotic
# Transaminitis unclear etiology
-Resolved.
History of severe achalasia
-Tolerates diet at home without much difficult. Unable to eat steak at times does okay otherwise with soft food consistency diet
-Advance to regular diet and tolerating it
-Follows at [facility] and was recently seen and plan was to continue with current management without any intervention.
History of non-Hodgkin's lymphoma status postchemotherapy 6 years ago
-Follows at [facility]
-Persistent leukocytosis ?component of NHL-No prior labs to compare.
#Hx of tobacco abuse for 18 years
-used to smoke heavy in the past ~18pack years
Full code
DVT prophylaxis�eliquis
Discussed with spouse at bedside in detail
I spent a total of 52 minutes with the patient or on the floor. More than 50% of this time involved counseling and coordination of care.
Anticipated Discharge: > 48 hours
Subjective/Interval History
-
Date of Service: May 20, 2024
denies pain
Objective Data
-
Labs:
Laboratory Results
05/20/24
07:19
WBC 14.3 H
Hgb 14.7
Hct 44.3
Plt Count 302
Sodium 141
Potassium 3.7
Chloride 107
Carbon Dioxide 24
BUN 20
Creatinine 1.1
Glucose 93
Calcium 8.9
Vital Signs:
Vital Signs
Temp Pulse Resp BP Pulse Ox
97.7 F 93 18 95/56 95
05/20/24 11:18 05/20/24 11:28 05/20/24 11:28 05/20/24 11:18 05/20/24 11:28
I&O
05/19/24 05/20/24 05/21/24
06:59 06:59 06:59
Intake Total 1280 / 1280 1297 / 1297
Output Total 500 / 500 900 / 900
Balance 780 / 780 397 / 397
[2024-05-20] MEDS: VISBIOME 1 CAP PO (13:42)
[2024-05-20] MEDS: LASIX 40 MG IV (16:35)
[2024-05-20] MEDS: KCL 40 MEQ PO (16:35)
[2024-05-20] MEDS: PRADAXA 150 MG PO (22:09)
[2024-05-21] VITALS (7 sets, daily range): BP systolic 102–132; BP diastolic 59–70; PULSE 92; O2SAT 92
[2024-05-21] MEDS: ZOSYN 50 IV ×4 (00:47→17:23)
[2024-05-21] MEDS: DUONEB 3 ML INH ×4 (07:57→19:36)
[2024-05-21] MEDS: PRADAXA 150 MG PO ×2 (08:16→19:29)
[2024-05-21] MEDS: LOPRESSOR 12.5 MG PO ×2 (08:17→19:29)
[2024-05-21] MEDS: VISBIOME 1 CAP PO (08:17)
[2024-05-21] MEDS: VITAMIN D3 (cholecalciferol) 50 MCG PO (08:17)
[2024-05-21 09:09] LABS: % Basophils 0.7 % (0-2); % Eosinophils 1.6 % (0-6); % Lymphocytes 4.8 % (20.5-51.1); % Monocytes 6.6 % (1.7-9.3); % Neutrophils 85.3 % (42.2-75.2); Absolute Basophils 0.1 10^3/uL (0-0.2); Absolute Eosinophils 0.2 10^3/uL (0-0.7); Absolute Immature Granulocytes 0.1 10^3/uL (0-0.05); Absolute Lymphocytes 0.6 10^3/uL (1.2-3.4); Absolute Monocytes 0.8 10^3/uL (0.1-0.6); Absolute Neutrophils 9.9 10^3/uL (1.4-6.5); Hematocrit 44.5 % (39.0-52.0); Mean Corp Hgb Conc. 33.7 g/dL (33.0-37.0); Mean Corpuscular Hgb 29.1 pg (27.0-31.0); Mean Corpuscular Volume 86.2 fL (80.0-94.0); Mean Platelet Volume 9.9 fL (7.4-10.4); Nucleated Red Blood Cells % 0 % (-); Platelet Count 297 10^3/uL (130-400); Red Blood Cell Count 5.16 10^6/uL (4.70-6.10); White Blood Cell Count 11.6 10^3/uL (4.8-10.8)
--- NOTE | 2024-05-21 11:36 | W.PN.HOSP.TC ---
Today's Communication/Plan
-
Monitor vital signs and see plan
another dose IV Lasix today and monitor
Wean oxygen as tolerated
Will need home O2 evaluation prior to discharge
Continue antibiotics
Discussed with at bedside
Assessment / Plan
Assessment / Plan
General: Well Developed and No Apparent Distress; Negative Respiratory Distress
HEENT: Normocephalic, Atraumatic, Moist Mucous Membranes and Oxygen (midflow 4 liters)
Respiratory: rhonchi improved
Cardiac: Regular Rhythm and S1/S2; Negative Murmur, Rub or Gallop
GI: Soft, Nontender, Nondistended and Normal Bowel Sounds; Negative Organomegaly
Rectal: Deferred by Provider
Musculoskeletal: No Clubbing, No Cyanosis and No Edema
Skin: Negative Rash
Neuro: Awake, AO x 3, No Motor Deficits and Nonfocal/Grossly Intact
Psych: Calm, pleasant
# Acute hypoxemic respiratory failure secondary to severe bilateral lower lobe/right middle lobe pneumonia/left upper lobe
# Sepsis secondary to pneumonia-poa
-CT chest shows severe bilateral lower lobes, right middle lobe pneumonia, pneumonia in the left upper lobe, very severe diffuse esophageal distention consistent with very severe achalasia, mild mediastinal and bilateral hilar lymphadenopathy, mild
cardiomegaly,
-Influenza and COVID-negative
At one point was on 15 L, now on 3L; wean o2 as tolerated
-Check sputum culture-usual resp courtney
-strep antigen, Legionella antigen-NEGative
-Blood culture negative so far. Sputum sample usual respiratory courtney.
-Completed azithromycin course. Continue Zosyn. WBC downtrending. treat abx until 05/24
-Repeat x-ray 05/20 with severe dilation of thoracic esophagus, similar to recent examination likely from achalasia. Opacity in the right lower lobe, left lower lung
-Incentive spirometry and Acapella. Started duoneb.
Pulmonary following
Lasix 40 IV once was given 05/20 and patient responded well. Another dose of Lasix today and monitor volume status
# Tachycardia likely secondary to A. tach versus A-fib
-Seen by cardiology this hospitalization
-started on lopressor low dose and pradaxa (Eliquis cost was high)
-ECHO with normal ventricular size, thickness and systolic function. EF of 55 to 60%. Enlarged right ventricular size with normal systolic function. Mild to moderate aortic regurgitation.
Diarrhea
C. difficile negative
Added probiotic
# Transaminitis unclear etiology
-Resolved.
History of severe achalasia
-Tolerates diet at home without much difficult. Unable to eat steak at times does okay otherwise with soft food consistency diet
-Advance to regular diet and tolerating it
-Follows at [facility] and was recently seen and plan was to continue with current management without any intervention.
History of non-Hodgkin's lymphoma status postchemotherapy 6 years ago
-Follows at [facility]
-Persistent leukocytosis ?component of NHL-No prior labs to compare.
#Hx of tobacco abuse for 18 years
-used to smoke heavy in the past ~18pack years
Full code
DVT prophylaxis�eliquis
Discussed with spouse at bedside in detail
I spent a total of 51 minutes with the patient or on the floor. More than 50% of this time involved counseling and coordination of care.
Anticipated Discharge: 24 - 48 hours
Subjective/Interval History
-
Date of Service: May 21, 2024
denies pain
Objective Data
-
Labs:
Laboratory Results
05/21/24
08:16
WBC 11.6 H
Hgb 15.0
Hct 44.5
Plt Count 297
Vital Signs:
Vital Signs
Temp Pulse Resp BP Pulse Ox
97.8 F 72 16 122/70 94
05/21/24 07:00 05/21/24 08:17 05/21/24 07:58 05/21/24 07:00 05/21/24 11:33
I&O
05/20/24 05/21/24 05/22/24
06:59 06:59 06:59
Intake Total 1297 / 1297 1490 / 1490
Output Total 900 / 900 2600 / 2600
Balance 397 / 397 -1110 / -1110
--- NOTE | 2024-05-21 12:21 | PTCARENOTE ---
Pt ambulated in hallway with RN on 2L via NC. Pulse ox remained 93-98% throughout walk HR: 90s. Pt ambulated over 350ft. Some shortness of breath noted but pt tolerated well.
--- NOTE | 2024-05-21 12:22 | W.PN.PUL3 ---
Today's Communication / Plan
-
Trial of diuresis
ABx
Follow-up infectious workup
DuoNebs
Repeat imaging as an outpatient
O2 and titrate to keep SpO2 >90-94%; check home O2 assessment prior to discharge
Assessment
-
Assessment: 78-year-old male former tobacco smoker with a past medical history of esophageal achalasia s/p Heller myotomy, non-Hodgkin lymphoma s/p Rituxan, history of internal hemorrhoids and colonic polyps who presents with worsening SOB. He was
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 Patient is normally a healthy male needing no assistance with
ADLs and golfs multiple times a week. Initial vitals in the ER showed he was afebrile to 99.2 �F, tachycardic to 122, tachypneic to 22, BP 115/75 and he was saturating 86% on room air which improved to 92-93% with 6 L/min nasal cannula. He
initially had severe leukocytosis with WBC of 30.1, D-dimer was 1.3, proBNP 741, negative troponin X1, and COVID antigen negative. Flu A/B were also negative, blood cultures were collected, and CXR showed bilateral lower lobe + RML pneumonia with
severe diffuse esophageal distention. CT chest done showing no evidence of any acute PE, with multifocal pneumonia in all lobes except RUL. Also with very severe diffuse esophageal distention and mild mediastinal/hilar lymphadenopathy. He was
given nebulized bronchodilators in the ER, Solu-Medrol 125 mg IV x 1, Zithromax and ceftriaxone and admitted to the hospitalist service. He was continued on antibiotics with Zosyn + Zithromax, and had initially required as much as 15 L/min via
midflow nasal cannula. Oxygen requirements has markedly improved however he still requires up to 4-5 L/min via midflow nasal cannula. Pulmonary service now consulted for additional management/recommendations.
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
Impression:
#Sepsis due to multifocal pneumonia
#CAP
#Acute respiratory failure with hypoxia due to above
#Supplemental oxygen dependence
#Atrial tachycardia with new onset A-fib now in NSR
#RV enlargement with mild�moderate AI (seen on TTE from 05/18/2024)
#History of esophageal achalasia s/p Heller myotomy with very severe esophageal distention seen on CTA chest from 05/13/2024
Plan:
- Continue with broad-spectrum antibiotics � currently on Zosyn (started 05/14) s/p Zithromax (started 05/13-05/17/2024)
- Will plan for at least 7-10 days of antibiotics assuming he continues to be afebrile and is clinically continuing to improve
- Follow-up blood culture (collected 05/13) + respiratory culture (collected 05/14)
- Maintain SpO2 >90-94% with supplemental O2; wean as tolerated with ambulatory pulse oximetry prior to discharge
- Incentive spirometer encouraged
- Continue prn nebulized bronchodilators
- Trend WBC and fever curve
- ProBNP elevated at 2820 --> diurese as tolerated -gave 40mg IV lasix x1 on 05/20 - monitor UOP and evaluate his clinical response
- trend BNP
- Give dose of potassium + magnesium today given he was diuresed and is at risk of hypokalemia/hypomagnesemia
- Beta-apurva started by cardiology given his new onset atrial tachycardia/A-fib although now currently in NSR
- Echo from 05/18/2024 showed mild�moderate AI with RV enlargement with normal RV systolic function to no prior to compare to. Perhaps due to acute hypoxic respiratory failure; consider repeating TTE in 3 to 6 months
- Eliquis changed to pradaxa on 05/20
- Continue with DOAC given elevated [id number] score; perhaps we can obtain outpatient Zio patch to assess A-fib burden if he ever wants to get himself off of Pradaxa
- Replete electrolytes with K>4, Mg>2
- Maintain euglycemia with goal BG >100 and <180
- DVT ppx: DOAC
Pulmonary service will continue to follow along. He will need repeat imaging with CXR versus CT chest in about 4-6 weeks, and I will make arrangements to see him in the office as well for full PFTs + 6MWT (to try to get him off of oxygen as I
presume he will be discharged with home oxygen therapy).
Total time spent today was 35 minutes for this encounter. Time includes reviewing laboratory test/imaging results, reviewing pertinent medical records, obtaining and reviewing medical history, performing an appropriate exam, ordering medications,
tests and procedures. Time also includes documentation of this encounter, coordinating patient care and communicating with other healthcare professionals. Total time does not include separately billed tests performed on this date of service.
Data:
CTA Chest 05-13-2024:
1. SEVERE BILATERAL LOWER LOBE and RIGHT MIDDLE LOBE PNEUMONIA.
2. Mild pneumonia in the left upper lobe.
3. VERY SEVERE DIFFUSE ESOPHAGEAL DISTENTION consistent with VERY SEVERE ACHALASIA.
4. Mild mediastinal and bilateral hilar lymphadenopathy.
5. Mild cardiomegaly.
TTE 05-18-2024:
Normal left ventricular size, wall thickness and systolic function.
LV ejection fraction is 55-60% by Pickard's method of discs.
Enlarged right ventricular size with normal systolic function.
Mild to moderate aortic regurgitation.
No prior study available for comparison.
Subjective Data
-
Date of Service:
Date of Service: May 21, 2024
Chief Complaint: Pulmonary Follow Up
Subjective:
When I saw the patient today, he was on 2 L/min nasal cannula and breathing was similar to yesterday. at bedside. According to her, he is definitely breathing better today overall. He was given Lasix yesterday and again this morning. Making
good, adequate urine output as per patient and the bedside nurse. Denies chest pain, headache, abdominal pain, fevers or chills.
Review of Systems
General: Other (Negative unless mentioned above)
Objective Data
Data Reviewed
Vital Signs / I&O / Oxygen:
Vital Signs
Temp Pulse Resp BP Pulse Ox
97.8 F 78 16 116/68 94
05/21/24 11:00 05/21/24 11:00 05/21/24 11:00 05/21/24 11:00 05/21/24 11:33
Intake and Output
05/20/24 05/21/24 05/22/24
06:59 06:59 06:59
Intake Total 1297 / 1297 1490 / 1490
Output Total 900 / 900 2600 / 2600
Balance 397 / 397 -1110 / -1110
SaO2 94
Nasal Cannula flow liters per 2
minute
Physical Exam
General: Respiratory Distress (negative) and Comfortable
HEENT: Normocephalic and Anicteric
Cardiovascular: S1-S2 and Peripheral Edema (+1 lower extremity pitting edema bilaterally (improved compared to yesterday))
Respiratory: Wheeze (Negative), Crackles (Bibasilar), Rhonchi (Bilateral in the lower lobes-middle lung don) and Non-Labored Respirations
GI: Soft, Non Distended, Non Tender and Normal Bowel Sounds
Neurology: AO x 3 and Tremors (Negative)
Skin: Warm, Dry, Cyanosis (Negative) and Jaundice (Negative)
Labs/Micro/Reports
Lab Data
05/21/24 08:16
Microbiology
05/20/24 06:25 Feces/Stool C. difficile GDH Antigen & Toxins - Final
Negative for toxigenic C.difficile
05/13/24 19:49 Blood/Venous Blood Culture - Final
No Growth - Final Report
[2024-05-21 13:25] LABS: Blood Urea Nitrogen 19 mg/dl (9-20); Carbon Dioxide 28 mmol/L (22-30); Chloride 106 mmol/L (98-107); Estimated Creatinine Clearance 58 ml/min; Glucose 84 mg/dl (70-99); Potassium 3.7 mmol/L (3.5-5.1); Sodium 139 mmol/L (135-145); eGFR > 60.00
[2024-05-21] MEDS: LASIX 40 MG IV (14:35)
[2024-05-21] MEDS: KCL 40 MEQ PO (20:19)
[2024-05-21] MEDS: MAGNESIUM OXIDE 500 MG PO (20:20)
[2024-05-22] VITALS (9 sets, daily range): BP systolic 82–120; BP diastolic 57–73; PULSE 81–89; O2SAT 89–93
[2024-05-22] MEDS: ZOSYN 50 IV ×5 (00:47→23:15)
[2024-05-22] MEDS: DUONEB 3 ML INH ×4 (07:31→17:56)
[2024-05-22 07:59] LABS: % Basophils 0.7 % (0-2); % Eosinophils 1.3 % (0-6); % Immature Granulocytes 0.7 % (0-0.5); % Lymphocytes 3.6 % (20.5-51.1); % Monocytes 5.5 % (1.7-9.3); % Neutrophils 88.2 % (42.2-75.2); Absolute Basophils 0.1 10^3/uL (0-0.2); Absolute Eosinophils 0.2 10^3/uL (0-0.7); Absolute Immature Granulocytes 0.1 10^3/uL (0-0.05); Absolute Lymphocytes 0.5 10^3/uL (1.2-3.4); Absolute Monocytes 0.7 10^3/uL (0.1-0.6); Absolute Neutrophils 11.9 10^3/uL (1.4-6.5); Hematocrit 49.3 % (39.0-52.0); Hemoglobin 16.2 g/dL (13.0-18.0); Mean Corp Hgb Conc. 32.9 g/dL (33.0-37.0); Mean Corpuscular Hgb 29.5 pg (27.0-31.0); Mean Corpuscular Volume 89.8 fL (80.0-94.0); Mean Platelet Volume 9.9 fL (7.4-10.4); Nucleated Red Blood Cells % 0 % (-); Platelet Count 304 10^3/uL (130-400); Red Blood Cell Count 5.49 10^6/uL (4.70-6.10); Red Cell Dist. Width 14.4 % (11.5-14.5); White Blood Cell Count 13.5 10^3/uL (4.8-10.8)
[2024-05-22 08:13] LABS: NT-proBNP 665 pg/ml
[2024-05-22] MEDS: PRADAXA 150 MG PO ×2 (08:50→20:18)
[2024-05-22] MEDS: LOPRESSOR 12.5 MG PO ×2 (08:50→20:18)
[2024-05-22] MEDS: FLUSH (NSS) 1 FLUSH IV (08:51)
[2024-05-22] MEDS: VITAMIN D3 (cholecalciferol) 50 MCG PO (08:51)
[2024-05-22] MEDS: VISBIOME 1 CAP PO (08:51)
[2024-05-22 10:09] LABS: Blood Urea Nitrogen 18 mg/dl (9-20); Calcium 9.4 mg/dl (8.4-10.2); Carbon Dioxide 33 mmol/L (22-30); Chloride 103 mmol/L (98-107); Estimated Creatinine Clearance 49 ml/min; Glucose 91 mg/dl (70-99); Magnesium 2.3 mg/dl (1.6-2.3); Phosphorus 3.1 mg/dl (2.5-4.5); Potassium 4.2 mmol/L (3.5-5.1); Sodium 141 mmol/L (135-145); eGFR 55.88
--- NOTE | 2024-05-22 12:32 | W.PN.PUL3 ---
Today's Communication / Plan
-
BNP markedly improved and his volume status is also better
ABx
Follow-up infectious workup - NGTD
DuKandi
Repeat imaging as an outpatient
O2 and titrate to keep SpO2 >90-94%; home O2 assessment performed today, Case management to get him 2L/min with rest, 3L/min with activity
Patient can likely be discharged home tomorrow with outpatient follow-up
Assessment
-
Assessment: 78-year-old male former tobacco smoker with a past medical history of esophageal achalasia s/p Heller myotomy, non-Hodgkin lymphoma s/p Rituxan, history of internal hemorrhoids and colonic polyps who presents with worsening SOB. He was
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 Patient is normally a healthy male needing no assistance with
ADLs and golfs multiple times a week. Initial vitals in the ER showed he was afebrile to 99.2 �F, tachycardic to 122, tachypneic to 22, BP 115/75 and he was saturating 86% on room air which improved to 92-93% with 6 L/min nasal cannula. He
initially had severe leukocytosis with WBC of 30.1, D-dimer was 1.3, proBNP 741, negative troponin X1, and COVID antigen negative. Flu A/B were also negative, blood cultures were collected, and CXR showed bilateral lower lobe + RML pneumonia with
severe diffuse esophageal distention. CT chest done showing no evidence of any acute PE, with multifocal pneumonia in all lobes except RUL. Also with very severe diffuse esophageal distention and mild mediastinal/hilar lymphadenopathy. He was
given nebulized bronchodilators in the ER, Solu-Medrol 125 mg IV x 1, Zithromax and ceftriaxone and admitted to the hospitalist service. He was continued on antibiotics with Zosyn + Zithromax, and had initially required as much as 15 L/min via
midflow nasal cannula. Oxygen requirements has markedly improved however he still requires up to 4-5 L/min via midflow nasal cannula. Pulmonary service now consulted for additional management/recommendations.
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
Impression:
#Sepsis due to multifocal pneumonia
#CAP
#Acute respiratory failure with hypoxia due to above
#Supplemental oxygen dependence
#Atrial tachycardia with new onset A-fib now in NSR
#RV enlargement with mild�moderate AI (seen on TTE from 05/18/2024)
#History of esophageal achalasia s/p Heller myotomy with very severe esophageal distention seen on CTA chest from 05/13/2024
Plan:
- Continue with broad-spectrum antibiotics � currently on Zosyn (started 05/14) s/p Zithromax (started 05/13-05/17/2024)
- Will plan for at least 7-10 days of antibiotics assuming he continues to be afebrile and is clinically continuing to improve
- Follow-up blood culture (collected 05/13) + respiratory culture (collected 05/14)
- Maintain SpO2 >90-94% with supplemental O2; wean as tolerated; home O2 assessment performed today and he needs 2 L/min with rest, 3 L/min with activity
- Incentive spirometer encouraged
- Continue prn nebulized bronchodilators
- Trend WBC and fever curve
- ProBNP elevated at 2820 --> diurese as tolerated -gave 40mg IV lasix x1 on 05/20 - monitor UOP and evaluate his clinical response
- trend BNP -markedly improved today (665 from a peak of 2820 on 05/20/2024)
- Beta-apurva started by cardiology given his new onset atrial tachycardia/A-fib although now currently in NSR
- Echo from 05/18/2024 showed mild�moderate AI with RV enlargement with normal RV systolic function to no prior to compare to. Perhaps due to acute hypoxic respiratory failure; consider repeating TTE in 3 to 6 months
- Eliquis changed to pradaxa on 05/20
- Continue with DOAC given elevated [id number] score; perhaps we can obtain outpatient Zio patch to assess A-fib burden if he ever wants to get himself off of Pradaxa
- Replete electrolytes with K>4, Mg>2
- Maintain euglycemia with goal BG >100 and <180
- DVT ppx: DOAC
Pulmonary service will continue to follow along. He will need repeat imaging with CXR versus CT chest in about 4-6 weeks, and I will make arrangements to see him in the office as well for full PFTs + 6MWT (to try to get him off of oxygen as he will
be discharged with home oxygen therapy).
Total time spent today was 35 minutes for this encounter. Time includes reviewing laboratory test/imaging results, reviewing pertinent medical records, obtaining and reviewing medical history, performing an appropriate exam, ordering medications,
tests and procedures. Time also includes documentation of this encounter, coordinating patient care and communicating with other healthcare professionals. Total time does not include separately billed tests performed on this date of service.
Data:
CTA Chest 05-13-2024:
1. SEVERE BILATERAL LOWER LOBE and RIGHT MIDDLE LOBE PNEUMONIA.
2. Mild pneumonia in the left upper lobe.
3. VERY SEVERE DIFFUSE ESOPHAGEAL DISTENTION consistent with VERY SEVERE ACHALASIA.
4. Mild mediastinal and bilateral hilar lymphadenopathy.
5. Mild cardiomegaly.
TTE 05-18-2024:
Normal left ventricular size, wall thickness and systolic function.
LV ejection fraction is 55-60% by Pickard's method of discs.
Enlarged right ventricular size with normal systolic function.
Mild to moderate aortic regurgitation.
No prior study available for comparison.
Subjective Data
-
Date of Service:
Date of Service: May 22, 2024
Chief Complaint: Pulmonary Follow Up
Subjective:
Patient seen and evaluated today at bedside. Currently on 2 L/min nasal cannula. I spoke to his over the phone and answered all of her questions. Apparently patient woke up this morning, was doing well, and the oxygen was reduced by the
staff and then he became very short of breath with anxiety/distress. He currently appears to be breathing comfortably. He denies chest pain, headache, abdominal pain, fevers or chills.
Review of Systems
General: Other (Negative unless mentioned above)
Objective Data
Data Reviewed
Vital Signs / I&O / Oxygen:
Vital Signs
Temp Pulse Resp BP Pulse Ox
98.1 F 76 22 102/57 92
05/22/24 11:50 05/22/24 11:50 05/22/24 11:50 05/22/24 11:50 05/22/24 11:50
Intake and Output
05/21/24 05/22/24 05/23/24
06:59 06:59 06:59
Intake Total 1490 / 1490 1060 / 1060
Output Total 2600 / 2600 1925 / 1925 525 / 525
Balance -1110 / -1110 -865 / -865 -525 / -525
SaO2 92
Nasal Cannula flow liters per 2
minute
Physical Exam
General: Respiratory Distress (negative) and Comfortable
HEENT: Normocephalic and Anicteric
Cardiovascular: S1-S2 and Peripheral Edema (Negative)
Respiratory: Wheeze (Negative), Crackles (Bilaterally), Rhonchi (Bibasilar) and Non-Labored Respirations
GI: Soft, Non Distended, Non Tender and Normal Bowel Sounds
Neurology: AO x 3 and Tremors (Negative)
Skin: Warm, Dry, Cyanosis (Negative) and Jaundice (Negative)
Labs/Micro/Reports
Lab Data
05/22/24 07:00
05/22/24 08:54
Microbiology
05/20/24 06:25 Feces/Stool C. difficile GDH Antigen & Toxins - Final
Negative for toxigenic C.difficile
--- NOTE | 2024-05-22 16:33 | PTOTSP ---
Pt admited with PNA. Currently at mod I/I level with basic self care, transfers and functional mobility in room and bathroom without AD; on 2L at rest and 3L with mobility; O2 sats at 93-94% at rest and with activity. Encouraged pt to continue to
use incentive spirometer and acapella. No further skilled OT indicated at this time.
--- NOTE | 2024-05-22 17:20 | W.PN.HOSP.TC ---
Today's Communication/Plan
-
Home oxygen assessment
Continue to biotic
Discharge planning
Assessment / Plan
Assessment / Plan
# Acute hypoxemic respiratory failure secondary to severe bilateral lower lobe/right middle lobe pneumonia/left upper lobe
# Sepsis secondary to pneumonia- POA
-CT chest shows severe bilateral lower lobes, right middle lobe pneumonia, pneumonia in the left upper lobe, very severe diffuse esophageal distention consistent with very severe achalasia, mild mediastinal and bilateral hilar lymphadenopathy, mild
cardiomegaly,
-Influenza and COVID-negative
-Respiratory culture growing normal respiratory courtney
-Urine strep and Legionella antigen negative
-Blood culture remains negative
-Repeat x-ray 05/20 with severe dilation of thoracic esophagus, similar to recent examination likely from achalasia. Opacity in the right lower lobe, left lower lung
-Incentive spirometry and Acapella. Started duoneb.
-Patient will trial of IV Lasix without improvement/resolution of hypoxia. Likely will require oxygen arrangement.
# Tachycardia likely secondary to A. tach versus A-fib
-Seen by cardiology this hospitalization
-started on lopressor low dose and pradaxa (Eliquis cost was high)
-ECHO with normal ventricular size, thickness and systolic function. EF of 55 to 60%. Enlarged right ventricular size with normal systolic function. Mild to moderate aortic regurgitation.
#Diarrhea
C. difficile negative
Added probiotic
# Transaminitis unclear etiology
-Resolved.
#History of severe achalasia
-Tolerates diet at home without much difficult. Unable to eat steak at times does okay otherwise with soft food consistency diet
-Advance to regular diet and tolerating it
-Follows at [facility] and was recently seen and plan was to continue with current management without any intervention.
History of non-Hodgkin's lymphoma status postchemotherapy 6 years ago
-Follows at [facility]
-Persistent leukocytosis ?component of NHL-No prior labs to compare.
#Hx of tobacco abuse for 18 years
-used to smoke heavy in the past ~18pack years
Full code
DVT prophylaxis�eliquis
Anticipated Discharge: Within 24 hours
Subjective/Interval History
-
Date of Service: May 22, 2024
Continues to feel better
Oxygen recommend stable on 2 L at this point
Objective Data
-
Labs:
Laboratory Results
05/22/24 05/22/24
07:00 08:54
WBC 13.5 H
Hgb 16.2
Hct 49.3
Plt Count 304
Sodium Cancelled 141
Potassium Cancelled 4.2
Chloride Cancelled 103
Carbon Dioxide Cancelled 33 H
BUN Cancelled 18
Creatinine Cancelled 1.3
Glucose Cancelled 91
Calcium Cancelled 9.4
Vital Signs:
Vital Signs
Temp Pulse Resp BP Pulse Ox
97.8 F 82 20 101/58 94
05/22/24 15:40 05/22/24 15:40 05/22/24 15:40 05/22/24 15:40 05/22/24 15:40
I&O
05/21/24 05/22/24 05/23/24
06:59 06:59 06:59
Intake Total 1490 / 1490 1060 / 1060
Output Total 2600 / 2600 1925 / 1925 525 / 525
Balance -1110 / -1110 -865 / -865 -525 / -525
Review of Systems
-
Respiratory: Reports No Symptoms
Cardiac: Reports No Symptoms
Abdomen/GI: Reports No Symptoms
Physical Exam
-
General: No Apparent Distress and Comfortable
HEENT: Negative Oxygen
Respiratory: Clear to Auscultation
Cardiac: Regular Rhythm and S1/S2; Negative Murmur or Rub
GI: Soft, Nontender, Nondistended and Normal Bowel Sounds
Musculoskeletal: No Edema
Neuro: Awake, Alert, Oriented, No Motor Deficits and Nonfocal/Grossly Intact
Psych: Calm
[2024-05-23 03:47] VITALS: BP 126/65
[2024-05-23] MEDS: ZOSYN 50 IV ×2 (05:16→11:21)
[2024-05-23] MEDS: DUONEB 3 ML INH ×2 (07:36→11:19)
[2024-05-23 07:45] VITALS: BP 114/62
[2024-05-23] MEDS: VISBIOME 1 CAP PO (07:56)
[2024-05-23] MEDS: PRADAXA 150 MG PO (07:57)
[2024-05-23] MEDS: LOPRESSOR 12.5 MG PO (07:58)
[2024-05-23] MEDS: VITAMIN D3 (cholecalciferol) 50 MCG PO (07:59)
[2024-05-23 08:32] LABS: Hematocrit 45.9 % (39.0-52.0); Hemoglobin 15.1 g/dL (13.0-18.0); Mean Corp Hgb Conc. 32.9 g/dL (33.0-37.0); Mean Corpuscular Hgb 28.8 pg (27.0-31.0); Mean Corpuscular Volume 87.6 fL (80.0-94.0); Mean Platelet Volume 9.8 fL (7.4-10.4); Platelet Count 304 10^3/uL (130-400); Red Blood Cell Count 5.24 10^6/uL (4.70-6.10); Red Cell Dist. Width 14.4 % (11.5-14.5); White Blood Cell Count 14.2 10^3/uL (4.8-10.8)
[2024-05-23 09:14] LABS: Blood Urea Nitrogen 22 mg/dl (9-20); Carbon Dioxide 29 mmol/L (22-30); Chloride 104 mmol/L (98-107); Estimated Creatinine Clearance 49 ml/min; Glucose 87 mg/dl (70-99); Potassium 3.8 mmol/L (3.5-5.1); Sodium 141 mmol/L (135-145); eGFR 55.88
--- NOTE | 2024-05-23 10:41 | W.PN.PUL3 ---
Today's Communication / Plan
-
Doing well today, awaiting home O2 set up
Continue medical care
Outpatient pulmonary FU recommended
Discharge planning per team pending O2 setup
We will sign off at this time, please call with questions
Assessment
-
Assessment: 78-year-old male former tobacco smoker with a past medical history of esophageal achalasia s/p Heller myotomy, non-Hodgkin lymphoma s/p Rituxan, history of internal hemorrhoids and colonic polyps who presents with worsening SOB. He was
treated for bronchitis via his PCP [employer] with Ceftin + steroids, but his cough worsened and was productive with SOB and generalized weakness so he came to the ER for further evaluation. Patient is normally a healthy male needing no assistance with
ADLs and golfs multiple times a week. Initial vitals in the ER showed he was afebrile to 99.2 �F, tachycardic to 122, tachypneic to 22, BP 115/75 and he was saturating 86% on room air which improved to 92-93% with 6 L/min nasal cannula. He
initially had severe leukocytosis with WBC of 30.1, D-dimer was 1.3, proBNP 741, negative troponin X1, and COVID antigen negative. Flu A/B were also negative, blood cultures were collected, and CXR showed bilateral lower lobe + RML pneumonia with
severe diffuse esophageal distention. CT chest done showing no evidence of any acute PE, with multifocal pneumonia in all lobes except RUL. Also with very severe diffuse esophageal distention and mild mediastinal/hilar lymphadenopathy. He was
given nebulized bronchodilators in the ER, Solu-Medrol 125 mg IV x 1, Zithromax and ceftriaxone and admitted to the hospitalist service. He was continued on antibiotics with Zosyn + Zithromax, and had initially required as much as 15 L/min via
midflow nasal cannula. Oxygen requirements has markedly improved however he still requires up to 4-5 L/min via midflow nasal cannula. Pulmonary service now consulted for additional management/recommendations.
Chronic conditions [employer]: Esophageal achalasia s/p Heller myotomy, NHL s/p Rituxan, history of bunion s/p bunionectomy, history of internal hemorrhoids, history of colonic polyps
Impression:
#Sepsis due to multifocal pneumonia
#CAP
#Acute respiratory failure with hypoxia due to above
#Supplemental oxygen dependence
#Atrial tachycardia with new onset A-fib now in NSR
#RV enlargement with mild�moderate AI (seen on TTE from 05/18/2024)
#History of esophageal achalasia s/p Heller myotomy with very severe esophageal distention seen on CTA chest from 05/13/2024
Plan:
- Continue with broad-spectrum antibiotics � currently on Zosyn (started 05/14) s/p Zithromax (started 05/13-05/17/2024)
- Will plan for at least 7-10 days of antibiotics assuming he continues to be afebrile and is clinically continuing to improve
- Follow-up blood culture (collected 05/13) + respiratory culture (collected 05/14)--negative to date
- Maintain SpO2 >90-94% with supplemental O2; wean as tolerated; home O2 assessment performed today and he needs 2 L/min with rest, 3 L/min with activity
- Incentive spirometer encouraged
- Continue prn nebulized bronchodilators
- Trend WBC and fever curve
- ProBNP elevated at 2820 --> diurese as tolerated -gave 40mg IV lasix x1 on 05/20 - monitor UOP and evaluate his clinical response
- trend BNP -markedly improved today (665 from a peak of 2820 on 05/20/2024)
- Beta-apurva started by cardiology given his new onset atrial tachycardia/A-fib although now currently in NSR
- Echo from 05/18/2024 showed mild�moderate AI with RV enlargement with normal RV systolic function to no prior to compare to. Perhaps due to acute hypoxic respiratory failure; consider repeating TTE in 3 to 6 months
- Eliquis changed to pradaxa on 05/20
- Continue with DOAC given elevated [id number] score; perhaps we can obtain outpatient Zio patch to assess A-fib burden if he ever wants to get himself off of Pradaxa
- Replete electrolytes with K>4, Mg>2
- Maintain euglycemia with goal BG >100 and <180
- DVT ppx: DOAC
He will need repeat imaging with CXR versus CT chest in about 4-6 weeks, and I will make arrangements to see him in the office as well for full PFTs + 6MWT (to try to get him off of oxygen as he will be discharged with home oxygen therapy).
Data:
CTA Chest 05-13-2024:
1. SEVERE BILATERAL LOWER LOBE and RIGHT MIDDLE LOBE PNEUMONIA.
2. Mild pneumonia in the left upper lobe.
3. VERY SEVERE DIFFUSE ESOPHAGEAL DISTENTION consistent with VERY SEVERE ACHALASIA.
4. Mild mediastinal and bilateral hilar lymphadenopathy.
5. Mild cardiomegaly.
TTE 05-18-2024:
Normal left ventricular size, wall thickness and systolic function.
LV ejection fraction is 55-60% by Pickard's method of discs.
Enlarged right ventricular size with normal systolic function.
Mild to moderate aortic regurgitation.
No prior study available for comparison.
Total time spent today was 35 minutes for this encounter. Time includes reviewing laboratory test/imaging results, reviewing pertinent medical records, obtaining and reviewing medical history, performing an appropriate exam, ordering medications,
tests and procedures. Time also includes documentation of this encounter, coordinating patient care and communicating with other healthcare professionals. Total time does not include separately billed tests performed on this date of service.
Subjective Data
-
Date of Service:
Date of Service: May 23, 2024
Chief Complaint: Pulmonary Follow Up
Subjective:
Doing well, no new complaints
Remains on low O2
Family at bedside
Objective Data
Data Reviewed
Vital Signs / I&O / Oxygen:
Vital Signs
Temp Pulse Resp BP Pulse Ox
98.8 F 70 16 114/62 92
05/23/24 07:45 07/13/24 07:45 05/23/24 07:45 05/23/24 07:45 05/23/24 08:00
Intake and Output
05/22/24 05/23/24 05/24/24
06:59 06:59 06:59
Intake Total 1060 / 1060 750 / 750
Output Total 1925 / 1925 1600 / 1600
Balance -865 / -865 -850 / -850
SaO2 92
Nasal Cannula flow liters per 2
minute
Physical Exam
General: Respiratory Distress (negative), Comfortable, Good Appetite and Other (NAD)
HEENT: Normocephalic, Anicteric and Moist Mucous Membranes
Cardiovascular: S1-S2, Regular Rhythm and Peripheral Edema (Negative)
Respiratory: Wheeze (Negative), Crackles (Bilaterally, minimal) and Non-Labored Respirations
GI: Soft, Non Distended, Non Tender and Normal Bowel Sounds
Neurology: Awake, Alert, Oriented, AO x 3 and Tremors (Negative)
Skin: Warm, Dry, Cyanosis (Negative) and Jaundice (Negative)
Labs/Micro/Reports
Lab Data
05/23/24 07:52
05/23/24 07:52
Microbiology
05/20/24 06:25 Feces/Stool C. difficile [facility] Antigen & Toxins - Final
Negative for toxigenic C.difficile
[2024-05-23 11:35] VITALS: BP 100/60
--- NOTE | 2024-05-23 13:16 | W.PN.HOSP.TC ---
Addendum entered and electronically signed by Ron Estrada MD 05/23/24 13:36:
Patient is in need of oxygen on exertion due to pulse oximetry of 91% on room air at rest; 88% on room air with exertion.
Patient was placed on 2L O2 via nasal cannula with saturation of 92%. Oxygen will help to improve hypoxemia.
Antibotic therapy has been discussed and is ineffective in treating hypoxemia-related symptoms.
Oxygen will improve the patient's symptoms.
Original Note:
Today's Communication/Plan
-
d/c home if o2 arranged
Assessment / Plan
Assessment / Plan
# Acute hypoxemic respiratory failure secondary to severe bilateral lower lobe/right middle lobe pneumonia/left upper lobe
# Sepsis secondary to pneumonia- POA
-CT chest shows severe bilateral lower lobes, right middle lobe pneumonia, pneumonia in the left upper lobe, very severe diffuse esophageal distention consistent with very severe achalasia, mild mediastinal and bilateral hilar lymphadenopathy, mild
cardiomegaly,
-Influenza and COVID-negative
-Respiratory culture growing normal respiratory courtney
-Urine strep and Legionella antigen negative
-Blood culture remains negative
-Repeat x-ray 05/20 with severe dilation of thoracic esophagus, similar to recent examination likely from achalasia. Opacity in the right lower lobe, left lower lung
-Incentive spirometry and Acapella. Started duoneb.
-Continues to remain on o2 and will need arrangement before discharge
-will provide 5 more days of augmentin making total~ 15 days of abx
# Tachycardia likely secondary to A. tach versus A-fib
-Seen by cardiology this hospitalization
-started on lopressor low dose and pradaxa (Eliquis cost was high)
-ECHO with normal ventricular size, thickness and systolic function. EF of 55 to 60%. Enlarged right ventricular size with normal systolic function. Mild to moderate aortic regurgitation.
#Diarrhea
C. difficile negative
Added probiotic
# Transaminitis unclear etiology
-Resolved.
#History of severe achalasia
-Tolerates diet at home without much difficult. Unable to eat steak at times does okay otherwise with soft food consistency diet
-Advance to regular diet and tolerating it
-Follows at [facility] and was recently seen and plan was to continue with current management without any intervention.
History of non-Hodgkin's lymphoma status postchemotherapy 6 years ago
-Follows at [facility]
-Persistent leukocytosis ?component of NHL-No prior labs to compare.
#Hx of tobacco abuse for 18 years
-used to smoke heavy in the past ~18pack years
Full code
DVT prophylaxis�eliquis
More than 30 minutes spent in discharge including
Final examination of the patient
Summarizing hospital stay
Instructions for continuing care to all relevant caregivers
Preparation of discharge records, prescriptions, and referral forms
Total time spent (in minutes): 38 mins
Anticipated Discharge: Today
Subjective/Interval History
-
Date of Service: May 23, 2024
no new issues overnight
remains afebrile
coughing up sputum, white, no change
Objective Data
-
Labs:
Laboratory Results
05/23/24
07:52
WBC 14.2 H
Hgb 15.1
Hct 45.9
Plt Count 304
Sodium 141
Potassium 3.8
Chloride 104
Carbon Dioxide 29
BUN 22 H
Creatinine 1.3
Glucose 87
Calcium 9.0
Vital Signs:
Vital Signs
Temp Pulse Resp BP Pulse Ox
97.8 F 80 16 100/60 94
05/23/24 11:35 05/23/24 11:35 05/23/24 11:35 05/23/24 11:35 05/23/24 11:35
I&O
05/22/24 05/23/24 05/24/24
06:59 06:59 06:59
Intake Total 1060 / 1060 750 / 750
Output Total 1924 / 1924 1600 / 1600
Balance -865 / -865 -850 / -850
Review of Systems
-
Respiratory: Reports Cough; Denies Trouble Breathing
Cardiac: Reports No Symptoms
Abdomen/GI: Reports No Symptoms
Physical Exam
-
General: No Apparent Distress and Comfortable
HEENT: Oxygen (2 L NC)
Respiratory: Clear to Auscultation
Cardiac: Regular Rhythm and S1/S2; Negative Murmur or Rub
GI: Soft, Nontender, Nondistended and Normal Bowel Sounds
Musculoskeletal: No Edema
Neuro: Awake, Alert, Oriented, No Motor Deficits and Nonfocal/Grossly Intact
Psych: Calm
--- NOTE | 2024-05-23 14:58 | CM ---
CM reviewed pt with Dr Estrada- ready for dc today
Will need VN and home O2 arranged
Bedside meeting with pt and spouse
Referrals made to [facility] via [facility] and [facility] for home O2
Rx and clinicals faxed to [facility]- delivery of portable approx 1600 today
IMM verbally reviewed- copy provided
VN order on chart
Discharge Disposition- home with [facility] and [employer] home O2- family transport
[2024-05-23 15:15] VITALS: BP 93/57
--- NOTE | 2024-05-24 16:05 | W.DCSUMMARY ---
Discharge Summary
Discharge Data
Date of Admission: 05/13/24
Date of Discharge: 05/23/24
-
Pending Results: No
Hospital Course
Discharging Physician : Dr Ron Estrada
Disposition : To home
Primary care physician : Dr Urszula Roy
Principal Discharge diagnosis :
Acute hypoxic respiratory failure
Sepsis
Community-acquired pneumonia
Atrial tachycardia/atrial fibrillation
Diarrhea from antibiotic
Mild transaminitis
Chronic Discharge diagnosis :
History of severe achalasia
History of non-Hodgkin's lymphoma postchemotherapy
History of tobacco abuse
Hospital Course :
Patient is a 79-year-old old male with above-mentioned past medical history came to ER with new onset of shortness of breath and productive cough for 1 week. Patient has increasingly short of breath over 1 week and was provided Ceftin/steroid
therapy outpatient without significant improvement. In ER chest x-ray was showing patient having new bilateral lower lobe pneumonia. Patient was diagnosed to be septic with a pneumonia as well. Patient was requiring mid flow oxygen at admission.
Patient was started on broad-spectrum antibiotic and septic workup was sent, which did not show any clear pathological organism. CT chest confirmed finding of bilateral diffuse pneumonia. Pulmonology was involved care and was following along.
Patient had slow recovery from hypoxia and pneumonia symptoms over next few days. At discharge patient was transition to Augmentin to finish total 15-day course of antibiotic.
Patient had also noted to be significant tachycardia and was felt to be atrial tachycardia versus A-fib. Patient was started on Lopressor and Pradaxa was Eliquis cost was limiting factor. Echocardiogram was done which showed preserved ejection
fraction with moderate aortic regurgitation. Patient will require to follow-up with cardiology in office postdischarge.
Post medical stabilization patient was discharged home, patient required home oxygen arrangement at discharge.
Important imaging findings :
None
Procedure findings :
None
Discharge Plan
-
Patient Disposition: Home (Routine Discharge)
Discharge Diagnosis/Procedures: Pneumonia, Hypoxic resp insuff
Condition: Fair
Diet: Regular
Activity: As tolerated
Driving Restrictions: As prior to admission
Bathing Restrictions: OK to Shower
Referrals:
Mabel Hope NP [Specified Professional Personl] - 06/15/24 11:40 am
Ruben Rich MD [Active] - in three to four weeks (full PFTs and 6MWT on day of office visit)
Urszula Roy MD [Family Provider] - in one week
Prescriptions:
New
metoprolol tartrate 25 mg Tablet
12.5 mg PO BID Qty: 60 1RF
dabigatran etexilate [Pradaxa] 150 mg Capsule
150 mg PO BID Qty: 60 2RF
Lactobac/Bifidobac [Visbiome]
1 cap PO DAILY 10 Days Qty: 10 0RF
amoxicillin-pot clavulanate 875-125 mg tablet
1 tab PO BID Qty: 10 0RF
Continued
albuterol sulfate 90 mcg/actuation Hfa Aerosol Inhaler
2 puff INHALATION R QIDPRN PRN (Reason: sob)
cholecalciferol (vitamin D3) [Vitamin D3] 50 mcg (2,000 unit) Capsule
50 mcg PO DAILY
Discontinued
cefuroxime axetil 250 mg Tablet
250 mg PO BID
Discharge Orders:
Discharge Patient (As Directed); Ordered 05/23/24
Ordered By: Ron Estrada
Discharge Date and Time
Discharge Date/Time: 05/23/24 15:54
Print Language: INDONESIAN
== END 2024-05-23 15:54 | disposition home health service (06) | DRG 871 ==
LOC: 4 EAST ACU 23:14
PROVIDERS: Hospitalist; Internal Medicine; ADMITTING PHYSICIAN Hospitalist; ATTENDING PHYSICIAN Hospitalist; CONSULT PHYSICIAN Internal Medicine Cardiovascular Disease; CONSULT PHYSICIAN Internal Medicine Critical Care Medicine; EMERGENCY PHYSICIAN Emergency Medicine; FAMILY PHYSICIAN Family Medicine
DX: A41.9 Sepsis, unspecified organism (principal); J18.9 Pneumonia, unspecified organism; J96.01 Acute respiratory failure with hypoxia; K52.1 Toxic gastroenteritis and colitis; R74.01 Elevation of levels of liver transaminase levels; K22.0 Achalasia of cardia; I48.91 Unspecified atrial fibrillation; T36.1X5A Adverse effect of cephalosporins and other beta-lactam antibiotics, initial encounter; Y92.239 Unspecified place in hospital as the place of occurrence of the external cause; Z87.891 Personal history of nicotine dependence; Z11.52 Encounter for screening for COVID-19; Z85.72 Personal history of non-Hodgkin lymphomas; Z92.21 Personal history of antineoplastic chemotherapy; Z86.010 Personal history of colon polyps; Z87.19 Personal history of other diseases of the digestive system
CPT/HCPCS: 71045; 71046; 71275; 80048; 80053; 83605; 83735; 83880; 84100; 84484; 85025; 85027; 85379; 87040; 87070; 87205; 87324; 87449; 87502; 87811; 87899; 92610; 93005; 93306; 94640; 96365; 96375; 97116; 97162; 97165; 99285; Q9967

== ENCOUNTER → 2024-06-30 08:12 | Outpatient (REF) | payer MEDICARE, OTHER, SELFPAY | LOC: HWRAD 08:12 | PROVIDERS: ATTENDING PHYSICIAN Nurse Practitioner Adult Health; FAMILY PHYSICIAN Family Medicine | DX: J18.9 Pneumonia, unspecified organism (principal) | CPT/HCPCS: 71250 ==

== ENCOUNTER → 2024-07-10 09:04 | Outpatient (REF) | payer MEDICARE, OTHER, SELFPAY | LOC: RCS 09:04 | PROVIDERS: ATTENDING PHYSICIAN Nurse Practitioner; FAMILY PHYSICIAN Family Medicine | DX: I48.0 Paroxysmal atrial fibrillation (principal); I35.1 Nonrheumatic aortic (valve) insufficiency; I51.7 Cardiomegaly; J18.9 Pneumonia, unspecified organism | CPT/HCPCS: 93308; 93321; 93325 ==

== ENCOUNTER → 2024-10-28 14:09 | Outpatient (REF) | payer MEDICARE, OTHER, SELFPAY | LOC: DHSLP 14:09 | PROVIDERS: ATTENDING PHYSICIAN Internal Medicine Critical Care Medicine; FAMILY PHYSICIAN Family Medicine | DX: G47.33 Obstructive sleep apnea (adult) (pediatric) (principal) | CPT/HCPCS: 95800 ==